=== PATIENT | female | born 1985 | race Two or more races ===

== ENCOUNTER 2020-08-25 09:27 | Day surgery (SDC) | payer OTHER, SELFPAY ==
[2020-08-21 12:41] VITALS: BMI 50.6
--- NOTE | 2020-08-24 09:04 | P.CONAN_ITS ---
Documented by User: Nannette Vidalesney 08/24/20 09:05 HPI - Anesthesia Eval Consult details Narrative: 35yo F for Diagnostic Sacroiliac Joint Innervation Injection (L) [facility] Past Medical History Medical History Back pain Obesity Raynaud disease Thoracic outlet syndrome Surgical History Surgical History Hx of gastric bypass Social History Social History Are you a primary emergency care attendant to a significant other at home: No Do you presently have visiting nurse or other home services: No Smoking Status: Never smoker Use of substances other than those prescribed or required for medical reasons: No Advance Directives: No Advance Directives Information Provided: No Advance Directives on File: No Recently lost weight without trying: No Meds Allergies Allergy/AdvReac Type Severity Reaction Status Date / Time No Known Allergies Allergy Verified 08/25/20 10:00 Home Medications Medication Instructions Recorded Confirmed Type tramadol 1 tab PO Q12H PRN 08/21/20 08/21/20 History Exam Exam Date and Time: August 24, 2020 0904 Height,Weight and Vital Signs: Height 5 ft 8 in Weight 151.046 kg Assessment and Plan Assessment Anesthesia Assessment: Chart Reviewed Documented by User: Andrew Melton MD 08/25/20 12:02 [facility] Past Medical History Medical History Back pain Obesity Raynaud disease Thoracic outlet syndrome Surgical History Surgical History Hx of gastric bypass Social History Social History Are you a primary emergency care attendant to a significant other at home: No Do you presently have visiting nurse or other home services: No Smoking Status: Never smoker Use of substances other than those prescribed or required for medical reasons: No Advance Directives: No Advance Directives Information Provided: No Advance Directives on File: No Recently lost weight without trying: No Meds Allergies Allergy/AdvReac Type Severity Reaction Status Date / Time No Known Allergies Allergy Verified 08/25/20 10:00 Home Medications Medication Instructions Recorded Confirmed Type tramadol 1 tab PO Q12H PRN 08/21/20 08/21/20 History Exam Airway Mallampati Class: II TM Dist: >3cm Neck ROM: Full Loose/Missing/Broken Teeth: No Heart: rrr Lungs: nl Other: ao Assessment and Plan Assessment Anesthesia Assessment: Anesthesia Plan Discussed and Chart Reviewed Final Anesthetic Review NPO: Yes ASA Class: III Final Preanesthetic Review: No Changes in Pt Med Stat, Meds/Allgs Chart Reviewed, Consent Obtained/Reviewed and Anes Risks/Benef Reviewed Patient Risk: Intermediate Procedure Risk: Low Anesthetic Plan Anesthetic Plan: MAC: Disposition: Standard PACU
--- NOTE | 2020-08-25 07:59 | MHC.SHP ---
Pre-Procedural Eval Section B Chief Complaint: Sacroliitis Details of Present Illness: as above Relevant Family History (Specify if Yes): No Relevant Social History: None Present Medications: None Medical History: No relevant PMH Allergies: Allergies Allergy/AdvReac Type Severity Reaction Status Date / Time No Known Allergies Allergy Unverified 08/21/20 12:27 Plan Patient has been examined and remains a candidate for the planned procedure
--- NOTE | 2020-08-25 08:00 | PM.OP ---
Brief Operative Note Date of Service: 08/25/20 Pre-op diagnosis: sacroiliitis Post-op diagnosis: same Procedure: the same Implants: none Surgeon: Rojas Saldivar MD Estimated blood loss (mL): 0 Disposition: PACU
--- NOTE | 2020-08-25 08:04 | MHC.SHP ---
Pre-Procedural Eval Section B Chief Complaint: Sacroliitis Details of Present Illness: sacroiliitis Relevant Family History (Specify if Yes): No Relevant Social History: None Medical History: No relevant PMH History of Previous Operations: No relevant previous surgery Allergies: Allergies Allergy/AdvReac Type Severity Reaction Status Date / Time No Known Allergies Allergy Unverified 08/21/20 12:27 Review of Systems Sugical H&P ROS: Negative: Constitution, Cardiovascular, Respiratory, Neurological, Psychiatric, Hem-Onc, Allergic/Immunologic, Gastrointestinal, Genitourinary, Musculoskeletal, Integumentary, Endocrine and Eyes/Ears/Nose/Throat Exam Surgical H&P Exam: Normal: HEENT, Normal: Heart, Normal: Lungs, Normal: Extremities, Normal: Abdomen, Normal: Skin and Normal: Neurological Plan Diagnosis/Plan: Unchanged Patient has been examined and remains a candidate for the planned procedure
--- NOTE | 2020-08-25 08:08 | P.OP_ITS ---
Operative Note Operative Note Date of Service: 08/25/20 Narrative: diagnostic sacroiliac joint innervation injection palisade type and MBB L4 does ramus L5 diagnostic injection . After obtaining informed consent and answering all the questions the patient came to the operating room. She was positioned prone on operating table, [employer] monitors were applied and patient was sedated. TIME-OUT WAS OBTAINED DELINEATING CORRECT SITE AND SIDE OF THE PROCEDURE NAME OF THE PATIENT NEED FOR ANTIBIOTIC RISK OF FIRE. Sterilely draped C-arm was brought over at the operating field and patient's lower back and left buttock were prepped with ChloraPrep and draped with sterile towels. The point of interests were delineated 1st as the leftL5 superior articular process at the point of its connection with corresponding transverse process as well as left S1 superior articular process at it's connection with sacral alae. The the skin in the projection of the points of interest were injected with small amount of local lidocaine 2%, after that 22 gauge 5 in nee dles were driven in tunnel vision fashion to the point of interests. When needles gently contacted the bone 1st trace amount of contrast was injected into each needle demonstrating no intravascular and no intrathecal uptake of the contrast. After that small amount of bupivacaine 0.5% no more than 1 cc was injected into each side. The attention was redirected after that to left sacral bone where several needles were placed from connection of the sacral alae with superior articular process of S1 all the way down to the lowest point of sacroiliac joint on the medial side of the joint in palisade fashion. The needles were injected with trace amount of contrast demonstrating no intra thecal and no intravascular uptake of the contrast. After that no more than 1 cc of bupivacaine 0.5% was injected into each needle. Upon completion of the injections needles were removed sterile dressings were applied. Patient tolerated procedure well she was awaken and taking outside of the operating room to recovery room. She recovered without complications she went home without immediate complications.
[2020-08-25 09:49] VITALS: BP 105/69; PULSE 75; RESP 16; TEMP 36.6; O2SAT 97
[2020-08-25] MEDS: Lactated Ringers 1,000 ML 100 ML IVCONT (10:05)
--- NOTE | 2020-08-25 11:52 | FL_ITS ---
EXAMINATION: XR FLUOROSCOPY WITH IMAGES CLINICAL INFORMATION: SI joint innervation COMPARISON: Lumbosacral radiographs 04/27/2020 TECHNIQUE: Fluoroscopy performed by Dr. Rojas Saldivar. Fluoroscopy time: 0.6 minutes DAP: 14.3 Gycm2 Images: 3 FINDINGS: There are spinal needle seen overlying the outer left L4 and L5 neural foramen with contrast in the nerve sheath. There are 3 spinal needles also noted adjacent to the lower left SI joint. IUD is present. FL/FL guidance in OR IMPRESSION: Fluoroscopy for pain management procedures.
--- NOTE | 2020-08-25 12:08 | MHC.SHP ---
Pre-Procedural Eval Section A The patient is an INPATIENT: No Section B Chief Complaint: Sacroliitis Details of Present Illness: As above Relevant Family History (Specify if Yes): No Relevant Social History: None Present Medications: None Medical History: No relevant PMH Allergies: Allergies Allergy/AdvReac Type Severity Reaction Status Date / Time No Known Allergies Allergy Verified 08/25/20 10:00 Review of Systems Sugical H&P ROS: Negative: Cardiovascular, Respiratory, Neurological, Psychiatric, Hem-Onc, Allergic/Immunologic, Gastrointestinal, Genitourinary, Musculoskeletal, Integumentary, Endocrine and Eyes/Ears/Nose/Throat and Yes, Specify: Constitution ( morbid obesity) Exam Surgical H&P Exam: Normal: HEENT, Normal: Heart, Normal: Lungs, Normal: Extremities, Normal: Abdomen, Normal: Skin and Normal: Neurological Plan Diagnosis/Plan: Unchanged Patient has been examined and remains a candidate for the planned procedure
[2020-08-25 12:56] VITALS: BP 127/71; PULSE 78; RESP 20; TEMP 36.6; O2SAT 100
[2020-08-25 13:11] VITALS: BP 133/82; PULSE 72; RESP 20; TEMP 36.6; O2SAT 100
[2020-08-25 13:30] VITALS: BP 120/75; PULSE 73; RESP 20; O2SAT 100
--- NOTE | 2020-08-25 13:54 | HO.POSTANES ---
Post Anesthesia Evaluation Post Anesthesia Evaluation Vital Signs: Vital Signs Temp Pulse Resp BP Pulse Ox 08/25/20 13:30 97.8 F 73 20 120/75 100 08/25/20 13:11 97.8 F 72 20 133/82 100 08/25/20 12:56 97.8 F 78 20 127/71 100 08/25/20 09:49 97.8 F 75 16 105/69 97 Anesthesia: Monitored Mental Status: Awake Pain Control: Satisfactory Nausea/Vomiting: None Hydration: Adequate Anesthesia-Related Issues: No Anes. Related Issues
== END 2020-08-25 14:00 | disposition home or self-care (01) ==
PROVIDERS: PCP Internal Medicine; Visit Provider Anesthesiology
PROC: 3E0U33Z Introduction of Anti-inflammatory into Joints, Percutaneous Approach (ICD-10-PCS; CPT 27096; principal; 2020-08-25 11:00)
DX: M46.1 Sacroiliitis, not elsewhere classified (principal); M54.5 Low back pain; E66.01 Morbid (severe) obesity due to excess calories; Z98.84 Bariatric surgery status
CPT/HCPCS: 64451; 64493; J2250; Q9967

== ENCOUNTER → 2020-08-30 14:26 | Outpatient (BNVA) | payer OTHER, SELFPAY | PROVIDERS: PCP Internal Medicine; Referring Provider Internal Medicine; Visit Provider Anesthesiology | DX: M46.1 Sacroiliitis, not elsewhere classified (principal); M16.12 Unilateral primary osteoarthritis, left hip; E66.01 Morbid (severe) obesity due to excess calories; Z68.43 Body mass index [BMI] 50.0-59.9, adult; Z98.84 Bariatric surgery status; Z98.890 Other specified postprocedural states | CPT/HCPCS: 99212 ==

== ENCOUNTER 2020-09-20 08:07 | Outpatient (REF) | payer OTHER, SELFPAY ==
[2020-09-26 20:18] LABS: HPV mRNA E6/E7 rflx Not Detected (Not Detected)
[2020-10-14 13:23] LABS: CT PCR NOT DETECTED (Not Detect.); NG PCR NOT DETECTED (Not Detect.)
== END 2020-09-20 08:08 | disposition home or self-care (01) ==
LOC: HO.LAB 08:07
PROVIDERS: Visit Provider Advanced Practice Midwife
DX: Z01.419 Encounter for gynecological examination (general) (routine) without abnormal findings (principal); N92.0 Excessive and frequent menstruation with regular cycle; E66.01 Morbid (severe) obesity due to excess calories; Z87.42 Personal history of other diseases of the female genital tract; Z20.2 Contact with and (suspected) exposure to infections with a predominantly sexual mode of transmission
CPT/HCPCS: 87491; 87591; 87624; 87625; 88141; 88142

== ENCOUNTER 2020-09-27 09:00 | Outpatient (REF) | payer OTHER, SELFPAY ==
--- NOTE | 2020-09-27 09:15 | US_ITS ---
EXAMINATION: US] PELVIS COMPLETE CLINICAL INFORMATION: Menorrhagia, Mirena 12/23/2016. COMPARISON: None TECHNIQUE: Transabdominal and transvaginal ultrasound of the pelvis is performed. FINDINGS: The uterus is anteverted measuring 9.4 cm in length, 4.6 cm in AP and 5.8 cm in transverse dimension. The endometrial thickness is 0.84 cm. A Mirena IUD appears to be in the lower uterine segment/cervical region. The uterus is homogeneous echotexture. No focal lesion seen. Right ovary measures 1.8 x 1.9 x 1.8 cm and volume 3.2 mL. Previously it measured 2.8 x 3.2 x 2.9 cm and volume 13.6 mL. Left ovary measures 3.7 x 1.9 x 2.8 cm and volume 10.3 mL. Previously it measured 2.4 x 1.6 x 1.9 cm and volume 10.3 mL. A small corpus luteal cyst measures 2.2 x 1.8 x 2.0 cm. There is no free fluid in the cul-de-sac. US/US pelvic complete IMPRESSION: 1. Unremarkable uterus. There is Mirena IUD in lower uterine segment/cervical endometrium. 2. Small corpus luteal cyst, left ovary, measuring 2.2 cm. Otherwise ovaries are unremarkable. 3. There is no free fluid in the cul-de-sac.
--- NOTE | 2020-09-27 09:15 | US_ITS ---
EXAMINATION: US] PELVIS COMPLETE CLINICAL INFORMATION: Menorrhagia, Mirena 12/23/2016. COMPARISON: None TECHNIQUE: Transabdominal and transvaginal ultrasound of the pelvis is performed. FINDINGS: The uterus is anteverted measuring 9.4 cm in length, 4.6 cm in AP and 5.8 cm in transverse dimension. The endometrial thickness is 0.84 cm. A Mirena IUD appears to be in the lower uterine segment/cervical region. The uterus is homogeneous echotexture. No focal lesion seen. Right ovary measures 1.8 x 1.9 x 1.8 cm and volume 3.2 mL. Previously it measured 2.8 x 3.2 x 2.9 cm and volume 13.6 mL. Left ovary measures 3.7 x 1.9 x 2.8 cm and volume 10.3 mL. Previously it measured 2.4 x 1.6 x 1.9 cm and volume 10.3 mL. A small corpus luteal cyst measures 2.2 x 1.8 x 2.0 cm. There is no free fluid in the cul-de-sac. US/US transvaginal IMPRESSION: 1. Unremarkable uterus. There is Mirena IUD in lower uterine segment/cervical endometrium. 2. Small corpus luteal cyst, left ovary, measuring 2.2 cm. Otherwise ovaries are unremarkable. 3. There is no free fluid in the cul-de-sac.
== END 2020-09-27 09:01 | disposition home or self-care (01) ==
LOC: HO.HMGCX 09:00
PROVIDERS: Visit Provider Advanced Practice Midwife
DX: N92.0 Excessive and frequent menstruation with regular cycle (principal)
CPT/HCPCS: 76830; 76856

== ENCOUNTER 2020-10-17 09:25 | Outpatient (REF) | payer OTHER, SELFPAY ==
[2020-10-17 12:39] LABS: Glucose Urine UA NEG (NEG); Leukocyte Esterase Urine NEG (NEG); Nitrite Urine NEG (NEG); Specific Gravity - Urine 1.025 (1.005-1.025); Urine Blood NEG (NEG); Urine Ketones NEG (NEG); Urine Protein NEG (NEG-TRACE)
[2020-10-17 12:44] LABS: Appearance Urine CLEAR; Color Urine YELLOW
== END 2020-10-17 09:26 | disposition home or self-care (01) ==
LOC: HO.LAB 09:25
PROVIDERS: PCP Internal Medicine; Visit Provider Advanced Practice Midwife
DX: Z30.432 Encounter for removal of intrauterine contraceptive device (principal); Z30.09 Encounter for other general counseling and advice on contraception; N92.0 Excessive and frequent menstruation with regular cycle
CPT/HCPCS: 58301; 81003; 81025

== ENCOUNTER 2020-11-01 13:53 | Outpatient (REF) | payer OTHER, SELFPAY | END 2020-11-01 13:54 | disposition home or self-care (01) | LOC: HO.LAB 13:53 | PROVIDERS: PCP Internal Medicine; Visit Provider Obstetrics & Gynecology | DX: R87.610 Atypical squamous cells of undetermined significance on cytologic smear of cervix (ASC-US) (principal) | CPT/HCPCS: 57454; 81025; 88305 ==

== ENCOUNTER → 2020-11-15 15:33 | Outpatient (BNVA) | payer OTHER, SELFPAY | PROVIDERS: PCP Internal Medicine; Visit Provider Obstetrics & Gynecology ==

== ENCOUNTER 2021-01-08 08:55 | Outpatient (REF) | payer OTHER, SELFPAY ==
[2021-01-08 09:47] LABS: MANUAL DIFF FLAG NO
[2021-01-08 09:56] LABS: Basophils Percent Auto 0.4 % (0-2); Eosinophils Absolute Auto 0.1 X10*3/uL (0.0-0.4); Eosinophils Percent Auto 1.9 % (0-4); Hemoglobin 10.5 g/dl (12.0-16.0); Imm Gran Abs Auto 0.01 X10*3/uL (0.00-0.03); Imm Gran Pct Auto 0.2 % (0.0-0.4); Lymphocytes Absolute Auto 1.7 X10*3/uL (1.2-4.9); Lymphocytes Percent Auto 31.5 % (20-40); Mean Corpuscular HGB Conc 31.8 g/dl (31.0-35.0); Mean Corpuscular Hemoglobin 21.6 pg (27.0-33.0); Mean Corpuscular Volume 67.8 fL (80-98); Mean Platelet Volume 10.5 fL (9.4-12.3); Monocytes Absolute Auto 0.3 X10*3/uL (0.1-1.2); Monocytes Percent Auto 6.3 % (2-11); Neutrophils Absolute Auto 3.2 X10*3/uL (2.0-8.3); Neutrophils Percent Auto 59.7 % (45-73); Platelet Count 281 X10*3/uL (160-400); Red Blood Count 4.87 X10*6/uL (4.20-5.50); Red Cell Distribution Width 18.8 % (11.0-16.0); White Blood Count 5.4 X10*3/uL (4.8-10.8)
[2021-01-08 10:14] LABS: Alanine Aminotransferase 19 U/L (0-31); Albumin Level 3.8 g/dL (3.5-5.0); Alkaline Phosphatase 82 U/L (39-117); Anion Gap 11 (12-20); Aspartate Amino Transferase 23 U/L (5-31); Bilirubin Total 0.5 mg/dL (0.0-1.0); Blood Urea Nitrogen 17 mg/dL (9-16); Calcium 8.6 mg/dL (8.4-10.2); Carbon Dioxide 27 mmol/L (22-29); Chloride 104 mmol/L (96-108); Cholesterol 170 mg/dL; Estimated Glomerular Filt Rate > 60; Glucose Random 109 mg/dL (60-115); Glucose Urine UA NEG (NEG); HDL Cholesterol 68 mg/dL; LDL Cholesterol Calculated 87 mg/dl; Leukocyte Esterase Urine NEG (NEG); Nitrite Urine NEG (NEG); Potassium 4.2 mmol/L (3.3-5.1); Sodium 138 mmol/L (135-145); Total Protein 6.7 g/dL (6.5-8.0); Triglycerides 77 mg/dL; Urine Blood NEG (NEG); Urine Ketones NEG (NEG); Urine Protein NEG (NEG-TRACE)
[2021-01-08 10:25] LABS: Appearance Urine CLEAR; Color Urine YELLOW
[2021-01-08 10:26] LABS: RBC Urine 0 /HPF (0); Squamous Epithelial Cell Urine 3+ /LPF; WBC Urine 0-2 /HPF (0-4)
[2021-01-08 10:31] LABS: HBS Num1 56.92 mIU/mL (0-7.99); HBc Num1 0.09 S/CO (0.00-0.79); Hepatitis B Core Antibody Nonreactive (Nonreactive); ~Hepatitis B Surface Antibody REACTIVE (Nonreactive)
[2021-01-08 10:33] LABS: HBsAGNum1 0.22 S/CO (0.00-0.99); Hepatitis B Surface Antigen Negative (Negative)
[2021-01-08 10:37] LABS: Free T4 (Free Thyroxine) 0.79 ng/dL (0.71-1.85); Thyroid Stimulating Hormone 0.97 uIU/mL (0.32-4.0); Vitamin D 25-OH Total 7.3 ng/mL (>30)
[2021-01-08 11:06] LABS: Folate 8.1 ng/mL (> or = 4.0); Vitamin B12 296 pg/mL (200-900)
[2021-01-09 17:51] LABS: Rubella IgG Antibody 2.12 Index
[2021-01-10 19:26] LABS: TS Negative Control Passed; TS Panel A 0; TS Panel B 0; TS Positive Control Passed; TSpotTB Negative (SeeBelow)
== END 2021-01-08 08:56 | disposition home or self-care (01) ==
LOC: HO.LAB 08:55
PROVIDERS: Absent Provider Internal Medicine; PCP Internal Medicine; Visit Provider Internal Medicine
DX: Z01.84 Encounter for antibody response examination (principal); Z13.9 Encounter for screening, unspecified; Z11.1 Encounter for screening for respiratory tuberculosis; E66.01 Morbid (severe) obesity due to excess calories; E78.00 Pure hypercholesterolemia, unspecified
CPT/HCPCS: 36415; 80053; 80061; 81001; 82306; 82607; 82746; 84439; 84443; 85025; 86481; 86704; 86706; 86735; 86762; 86765; 86787; 87340

== ENCOUNTER → 2021-05-15 13:43 | Outpatient (BNVA) | payer OTHER, SELFPAY | PROVIDERS: PCP Internal Medicine; Visit Provider Obstetrics & Gynecology ==

== ENCOUNTER 2022-05-02 09:23 | Outpatient (REF) | payer OTHER, SELFPAY ==
[2022-05-06 23:27] LABS: HPV mRNA E6/E7 rflx Not Detected (Not Detected)
== END 2022-05-02 09:24 | disposition home or self-care (01) ==
LOC: HO.LAB 09:23
PROVIDERS: Visit Provider Obstetrics & Gynecology
DX: Z01.419 Encounter for gynecological examination (general) (routine) without abnormal findings (principal); Z11.51 Encounter for screening for human papillomavirus (HPV); R87.610 Atypical squamous cells of undetermined significance on cytologic smear of cervix (ASC-US)
CPT/HCPCS: 87624; 88142

== ENCOUNTER 2022-05-22 11:19 | Outpatient (REF) | payer OTHER, SELFPAY ==
[2022-05-22 16:00] LABS: CT PCR NOT DETECTED (Not Detect.); NG PCR NOT DETECTED (Not Detect.)
== END 2022-05-22 11:20 | disposition home or self-care (01) ==
LOC: HO.LAB 11:19
PROVIDERS: PCP Internal Medicine; Visit Provider Obstetrics & Gynecology
DX: Z00.00 Encounter for general adult medical examination without abnormal findings (principal); N92.0 Excessive and frequent menstruation with regular cycle; Z11.3 Encounter for screening for infections with a predominantly sexual mode of transmission; Z11.8 Encounter for screening for other infectious and parasitic diseases; Z13.220 Encounter for screening for lipoid disorders; E66.01 Morbid (severe) obesity due to excess calories; M16.12 Unilateral primary osteoarthritis, left hip
CPT/HCPCS: 87480; 87491; 87510; 87591; 87660; 99212

== ENCOUNTER 2022-05-24 09:30 | Outpatient (REF) | payer OTHER, SELFPAY ==
[2022-05-25 09:44] LABS: BV Int Neg Control Negative (Negative); BV Int Pos Control Positive (Positive)
== END 2022-05-24 09:31 | disposition home or self-care (01) ==
LOC: HO.LAB 09:30
PROVIDERS: Visit Provider Advanced Practice Midwife
DX: Z20.2 Contact with and (suspected) exposure to infections with a predominantly sexual mode of transmission (principal)
CPT/HCPCS: 87480; 87510; 87660; 99211

== ENCOUNTER 2023-02-17 07:59 | Outpatient (REF) | payer OTHER, SELFPAY ==
[2023-02-19 15:18] LABS: TS Negative Control Passed; TS Panel A 1; TS Panel B 0; TS Positive Control Passed; TSpotTB Negative (Negative)
== END 2023-02-17 08:00 | disposition home or self-care (01) ==
LOC: HO.LAB 07:59
PROVIDERS: PCP Internal Medicine; Visit Provider Internal Medicine
DX: Z11.1 Encounter for screening for respiratory tuberculosis (principal)
CPT/HCPCS: 36415; 86481

== ENCOUNTER 2023-06-20 08:31 | Outpatient (AMB) | payer OTHER, SELFPAY ==
[2023-06-20 08:42] VITALS: BP 116/78; PULSE 81; O2SAT 99; BMI 48.8
--- NOTE | 2023-06-20 08:42 | A.OFFPC_ITS ---
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 Accompanied by: Self / Same As Patient Allergies No Known Allergies Allergy (Verified 06/20/23 09:28) Medication List - Last Reconciled 06/20/23 by Humza Chamberlain MD levonorgestrel (Liletta) intrauterine tramadol 50 mg PO Q8H PRN 30 days Tobacco use date assessed: 06/20/23 Dental Screening Dental Screen Date: 06/20/23 Did you have a dental visit in the last 12 months?: Yes Did you have a dental problem in the last 6 months where you did not have access to dental care?: No Was dental information given to patient?: Patient has dentist HPI ER follow up for work HPI Details Patient comes in today for her HDF follow up visit Relates that she first 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 knee 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) while working a couple of weeks ago on 06/04/23 She went to the ER at [facility] to her her knee examined then X-rays done came out negative and she was provided an Javier wrap for her knee and given instructions on how to manage her injury then States that tried going back to work a week later even though she was still exp eriencing left knee pain and discomfort and her knee gave out while she was going down some stairs States that she turned around and was able to fall sitting down but felt that she strained her knee even further in the process as she was then experiencing an increase in her knee pain Went to the ER at [facility] afterwards where repeat knee x-rays done showed only some knee effusion She was instructed to continue with knee wraps and to start applying some ice/cold compress to her knee for the next 24 hours and prescribed some Naproxen for the pain States that she is currently still experiencing increased discomfort and tightness over the back of her left knee, especially when she is walking and when she puts her weight onto her knee She is concerned about her leg giving out on her again because of how her knee feels She has not been back to work since her [facility] ER visit and was told by her employer that since they really have no light duty option, she should not return to work unless she is cleared medically No other acute complaints or symptoms are noted at present COUNTS INCLUDE 234 BEDS AT THE [facility] Medical History LGSIL (low grade squamous intraepithelial dysplasia) History of 2019 novel coronavirus disease (COVID-19) Right foot pain Osteoarthritis of left hip Sacroiliitis Morbid obesity Back pain Thoracic outlet syndrome Raynaud disease Surgical History Hx of gastric bypass Family History Mother Endometrial cancer Ovarian cancer Father Diabetes mellitus Social History Housing: House Are you a primary aged or disabled carer to a significant other at home: No Do you presently have visiting nurse or other home services: No Alcohol intake: current Alcohol intake frequency: holidays/special occasions only Patient Tobacco Use Status: Never used Tobacco e-Cigarette/Vaping Use: Never Used Second Hand Smoke Exposure: No service: No Current occupational status: employed Current occupational exposures/hazards: No Sexual orientation: Straight/Heterosexual Cognitive needs: No Hearing needs: No Vision needs: Yes Female Reproductive History Menstrual Age of Menarche: 10 Questionnaire PHQ-9 Over the last 2 weeks, how often have you been bothered by any of the following problems? 1. Little interest or pleasure in doing things: not at all 2. Feeling down, depressed, or hopeless: not at all 3. Trouble falling or staying asleep, or sleeping too much: not at all 4. Feeling tired or having little energy: not at all 5. Poor appetite or overeating: not at all 6. Feeling bad about yourself - or that you are a failure or have let yourself or your family down: not at all 7. Trouble concentrating on things, such as reading the newspaper or watching television: not at all 8. Moving or speaking so slowly that other people could have noticed. Or the opposite - being so fidgety or restless that you have been moving around a lot more than usual: not at all 9. Thoughts that you would be better off or of hurting yourself in some way: not at all Total score: 0 Depression Screening Interpretation: Negative 74576 - PHQ-9 Billing: Yes Source: Developed by Drs. Galdino Clay, Sanam Castaneda, Houston Masterson and colleagues, with an educational diya from [employer]. Thrive Questionnaire Date Thrive assessed: 06/20/23 I am a: Patient What is your living situation today?: I have a steady place to live Within the past 12 months, did the food you bought not last and you didn't have the money to get more?: Never true Within the past 12 months, did you worry whether your food would run out before you got money to buy more?: Never true Do you have trouble paying for medicines?: No Do you have trouble getting transportation to medical appointments?: No Do you have trouble paying your heating and electricity bill?: No Do you have trouble taking care of your child, family member or friend?: No Do you have trouble with day-to-day activities such as bathing, preparing meals, shopping, managing finances, etc.?: No Are you currently unemployed and looking for a job?: No Are you interested in more education?: No Please select the resources that you would like help with: None Currently or been in a relationship where the following occur: no concerns reported AUDIT C Alcohol Use Questionnaire (AUDIT-C) 1. How often do you have a drink containing alcohol?: Monthly or less 2. How many drinks containing alcohol do you have on a typical day when you are drinking?: 1 or 2 3. How often do you have six or more drinks on one occasion?: Never Total Score: 1 Score Reviewed/Action Taken: Yes BECKI-7 AMB Questionnaire BECKI-7 Date BECKI - 7 assessed: 06/20/23 Feeling nervous, anxious, or on edge: 0 = Not at all Not being able to stop or control worryin = Not at all Worrying too much about different things: 0 = Not at all Trouble relaxin = Not at all Being so restless that it is hard to sit still: 0 = Not at all Becoming easily annoyed or irritable: 0 = Not at all Feeling afraid as if something awful might happen: 0 = Not at all Total BECKI-7 score (0-4 normal; 5-9 mild; 10-14 moderate; 15-21 severe): 0 Source: Developed by Drs. Galdino Clay, Sanam Castaneda, Houston Masterson and colleagues, with an educational diya from [employer]. Review of Systems Const Denies fatigue, Denies fever(s) and Denies headache(s) ENT Denies dysphagia, Denies dizziness, Denies headache(s), Denies neck pain and Denies sore throat Card Denies chest pain and Denies dyspnea Resp Denies cough and Denies dyspnea GI Denies abdominal pain, Denies change in bowel habits, Denies dysphagia, Denies heartburn, Denies nausea and Denies vomiting Denies difficulty voiding, Denies nocturia and Denies dysuria Musc Reports arthralgias (left knee - see HPI) and Denies neck pain Skin/Breast Denies rash Neuro Denies dizziness and Denies headache(s) Endo Denies fatigue Physical exam (Primary Care) Vital Signs: Last Vital Signs Pulse 81 06/20/23 08:42 BP 116/78 06/20/23 08:42 Pulse Ox 99 06/20/23 08:42 Oxygen Delivery Method Room Air 06/20/23 08:42 BMI result Body Mass Index 48.8 Tobacco/Smoking Status: Tobacco use Status Tobacco use date assessed 06/20/23 06/20/23 08:49 Patient Tobacco Use Status Never used Tobacco 06/20/23 08:49 e-Cigarette/Vaping Use Never Used 06/20/23 08:49 PHQ-9: PHQ-9 Score PHQ-9: Total score 0 06/20/23 08:49 Depression Screening Interpretation: Negative Thrive Assessment: Date of Thrive Assessment Date Thrive assessed 06/20/23 06/20/23 08:49 Currently or been in a relationship where the following occur: no concerns reported Const General: no acute distress and alert Neck Neck: Yes no lymphadenopathy and Yes supple Resp Auscultation: clear to auscultation bilaterally, no rales and no wheezes Cardio Rate: regular rate Rhythm: regular rhythm Heart sounds: no murmurs GI Palpation (GI): Soft to palpation, nontender and No hepatosplenomegaly present Extrem General: Yes no clubbing, cyanosis or edema Left lower extremity: knee Details: tenderness (more of a discomfort and t ightness ) Location: of the popliteal fossa (and over the lateral aspect of the knee adjacent to the popliteal fossa) Assessment and Plan Assessment & Plan (1) Posterior left knee pain: Code(s): M25.562 - Pain in left knee Plan: Advised that she may have possibly strained her posterior cruciate ligament when she hurt her knee and aggravated the same ligament a week later but since her injury is not feeling any better more than a week later and her work requires her to be on her feet and walking a lot, she should stay off work for now until her injury is better evaluated and managed Should consider referral to physical therapy but I will go ahead and refer her to [facility] for further evaluation and recommendations SHe is inquiring about getting an MRI but advised that I will leave this up to the discretion of orthopedics to determine if an MRI is necessary at this point in time Advised to apply warm (instead of cold) compress over her knee PRN for symptomatic relief and to continue with Naproxen PRN for now Plan Follow up with PCP as scheduled in September 2023 Orders: Referrals Orthopedics Referral M25.562 - Pain in left knee Coding Level of Care Code Est Pt Level 3 (85672) Diagnoses Posterior left knee pain M25.562
== END 2023-06-20 09:31 | disposition home or self-care (01) ==
PROVIDERS: PCP Internal Medicine; Visit Provider Internal Medicine
DX: M25.562 Pain in left knee (principal)
CPT/HCPCS: 99213

== ENCOUNTER 2023-07-02 09:02 | Outpatient (AMB) | payer OTHER, SELFPAY ==
[2023-07-02 09:07] VITALS: BMI 48.7
--- NOTE | 2023-07-02 09:07 | MHC.OFFVIS ---
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 weighted? the patient. She states that she twisted her knee and had acute onset of pain. Most of the pain is along the medial aspect of her knee. Patient states that several days later she twisted her knee at the elderly lady's home and fell down several stairs. She has done physical therapy in the past which gave her minimal relief. She has also tried Tylenol and anti-inflammatory medicines which gave her only mild relief. She states that she does not feel comfortable returning to work because of her left knee instability. The patient also reports a chronic history of bilateral sacroiliitis. She states that she was seen here at [facility]. She did have a cortisone injection given into her low back approximately 3 years ago which gave her minimal relief. She would like to return to pain management to discuss further treatment options. Allergies No Known Allergies Allergy (Verified 06/20/23 09:28) Medication List - Last Reconciled 07/02/23 by Curt Guerrero MD levonorgestrel (Liletta) intrauterine tramadol 50 mg PO Q8H PRN 30 days PFSH Medical History LGSIL (low grade squamous intraepithelial dysplasia) History of 2019 novel coronavirus disease (COVID-19) Right foot pain Osteoarthritis of left hip Sacroiliitis Morbid obesity Back pain Thoracic outlet syndrome Raynaud disease Surgical History Hx of gastric bypass Family History Mother Endometrial cancer Ovarian cancer Father Diabetes mellitus Social History Housing: House Are you a primary primary care pediatrician to a significant other at home: No Do you presently have visiting nurse or other home services: No Alcohol intake: current Alcohol intake frequency: holidays/special occasions only Patient Tobacco Use Status: Never used Tobacco e-Cigarette/Vaping Use: Never Used Second Hand Smoke Exposure: No service: No Current occupational status: employed Current occupational exposures/hazards: No Sexual orientation: Straight/Heterosexual Cognitive needs: No Hearing needs: No Vision needs: Yes Female Reproductive History Menstrual Age of Menarche: 10 Physical Exam Vital Signs: BMI result Body Mass Index 48.7 Const Other: Well-nourished well-developed very friendly female awake alert and oriented x3 in no acute distress Extrem Other: Bilateral lower extremity examination shows good capillary refill, no skin lesions noted, normal sensation light touch Left knee examination shows a minimal effusion, minimal crepitus with range of motion, tenderness along her medial joint line, positive Marshall's test Results Reviewed Results Reviewed: X-rays of the patient's left knee show minimal diffuse joint space narrowing, no acute bony abnormalities Assessment & Plan Assessment & Plan (1) Left knee pain: Code(s): M25.562 - Pain in left knee Plan Ms. Herman presents with left knee pain and mechanical symptoms possibly due to a medial meniscus tear. Thus, I will send her for an MRI of her left knee for further evaluation. I will see her back once the MRI is completed to discuss findings and treatment options. I also put in a referral to pain management per her request. Feel free to contact me at any time should questions regarding her orthopedic management arise. I spent 22 minutes in reviewing the patient's records and imaging studies, seeing the patient and documenting in the medical record. Orders: Orders XR knee LT 3V Today M25.562 - Pain in left knee MR knee LT wo con Today M25.562 - Pain in left knee Referrals Pain Management Referral M46.1 - Sacroiliitis, not elsewhere classified Coding Level of Care Code New Pt Level 2 (15585) Diagnoses Left knee pain M25.562
== END 2023-07-02 09:31 | disposition home or self-care (01) ==
PROVIDERS: PCP Internal Medicine; Visit Provider Orthopaedic Surgery
DX: M25.562 Pain in left knee (principal)
CPT/HCPCS: 99202

== ENCOUNTER 2023-07-02 12:15 | Outpatient (REF) | payer OTHER, SELFPAY ==
--- NOTE | ~2023-07-02 | XR_ITS ---
EXAMINATION: XR KNEE, LEFT CLINICAL INFORMATION: Pain in left knee COMPARISON: None available. TECHNIQUE: Four views of the left knee. FINDINGS: No fracture or joint effusion. Alignment is anatomic. Joint spaces are maintained. No abnormal soft tissue calcification. XR/XR knee LT 3V IMPRESSION: Normal left knee.
== END 2023-07-02 12:16 | disposition home or self-care (01) ==
LOC: HO.HOSX 12:15
PROVIDERS: Visit Provider Orthopaedic Surgery
DX: M25.562 Pain in left knee (principal)
CPT/HCPCS: 73562; 99202

== ENCOUNTER 2023-08-13 08:42 | Outpatient (REF) | payer OTHER, SELFPAY | END 2023-08-13 08:43 | disposition home or self-care (01) | LOC: HO.MRI 08:42 | PROVIDERS: PCP Internal Medicine; Visit Provider Orthopaedic Surgery | DX: Z13.89 Encounter for screening for other disorder (principal) ==

== ENCOUNTER 2023-08-27 08:36 | Outpatient (AMB) | payer OTHER, SELFPAY ==
[2023-08-27 08:39] VITALS: BMI 48.7
--- NOTE | 2023-08-27 08:39 | A.OFFVIS_ITS ---
Intake Vital Signs 08/27/23 08:39 Height 5 ft 8 in Weight 320 lb BMI 48.7 Intake Visit Reasons: OV - Left knee MRI review Intake Note: Skip is a 37 year old female who presents today with left knee pain and giving way. 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 weighted? the patient. She states that she twisted her knee and had acute onset of pain. Most of the pain is along the medial aspect of her knee. Patient states that several days later she twisted her knee at the elderly lady's home and fell down several stairs. She has done physical therapy in the past which gave her minimal relief. She has also tried Tylenol and anti-inflammatory medicines which gave her only mild relief. She states that she does not feel comfortable returning to work because of her left knee instability. Allergies No Known Allergies Allergy (Verified 08/27/23 08:39) Medication List - Last Reconciled 08/27/23 by Curt Guerrero MD levonorgestrel (Liletta) intrauterine tramadol 50 mg PO Q8H PRN 30 days PFSH Medical History LGSIL (low grade squamous intraepithelial dysplasia) History of 2019 novel coronavirus disease (COVID-19) Right foot pain Osteoarthritis of left hip Sacroiliitis Morbid obesity Back pain Thoracic outlet syndrome Raynaud disease Surgical History Hx of gastric bypass Family History Mother Endometrial cancer Ovarian cancer Father Diabetes mellitus Housing: House Are you a primary acute care clinical nurse specialist to a significant other at home: No Do you presently have visiting nurse or other home services: No Alcohol intake: current Alcohol intake frequency: holidays/special occasions only Patient Tobacco Use Status: Never used Tobacco e-Cigarette/Vaping Use: Never Used Second Hand Smoke Exposure: No service: No Current occupational status: employed Current occupational exposures/hazards: No Sexual orientation: Straight/Heterosexual Cognitive needs: No Hearing needs: No Vision needs: Yes Female Reproductive History Menstrual Age of Menarche: 10 Physical Exam Vital Signs: BMI result Body Mass Index 48.7 Const Other: Well-nourished well-developed very friendly female awake alert and oriented x3 in no acute distress Lungs - clear to auscultation bilaterally with symmetric expansion Cardiovascular exam - regular rate and rhythm Abdominal exam - soft nontender nondistended Extrem Other: Bilateral lower extremity examination shows good capillary refill, no skin lesions noted, normal sensation light touch Left knee examination shows a minimal effusion, minimal crepitus range of motion, tenderness along her medial joint line, positive Marshall's test, no instability Results Reviewed Results Reviewed: Standing full weight-bearing x-rays of the patient's left knee show grade 1 minimal diffuse joint space narrowing, no acute bony abnormalities MRI of the patient's left knee shows mild diffuse degenerative changes as well as a tear of her medial meniscus and possible lateral meniscus tearing Assessment & Plan Assessment & Plan (1) Left knee pain: Code(s): M25.562 - Pain in left knee Plan: Ms. Herman presents with progressively worsening left knee pain and mechanical symptoms due to a medial meniscus tear and possible lateral meniscus tearing. I had a lengthy discussion with the patient regarding the treatment options. At this point she has failed continued non operative treatments. The risks and benefits of left knee arthroscopic surgery were discussed at length with the patient. The patient wishes to proceed with surgery. She does understand that she may not get 100% relief of her symptoms depending on the severity of her degenerative changes. The patient will contact my office to pick a surgery date. She will be given a prescription for pain medicine at the time of her surgery. Patient will follow-up as instructed. Feel free to call me at any time should questions regarding her orthopedic management arise. I spent 22 minutes in reviewing the patient's records and imaging studies, seeing the patient and documenting in the medical record. Coding Level of Care Code Est Pt Level 2 (64276) Diagnoses Left knee pain M25.562
== END 2023-08-27 08:48 | disposition home or self-care (01) ==
PROVIDERS: PCP Internal Medicine; Visit Provider Orthopaedic Surgery
DX: M25.562 Pain in left knee (principal)
CPT/HCPCS: 99212

== ENCOUNTER → 2023-08-27 08:36 | Outpatient (BNVA) | payer OTHER, SELFPAY | PROVIDERS: PCP Internal Medicine; Visit Provider Orthopaedic Surgery | DX: M25.562 Pain in left knee (principal); M16.11 Unilateral primary osteoarthritis, right hip | CPT/HCPCS: 99212 ==

== ENCOUNTER 2023-10-10 06:54 | Day surgery (SDC) | payer OTHER, SELFPAY ==
[2023-10-07 14:47] VITALS: BMI 48.7
--- NOTE | 2023-10-09 09:08 | HO.ANESPROP2 ---
Documented by User: Nannette Fuentes NP 10/09/23 09:10 HPI - Anesthesia Eval Consult details Narrative: 38yo F for Left Knee Arthroscopy, partil medial menisectomy, partial lateral menisectomy PMFSH Active Problems Active Problems: All Active Problems (Updated 07/02/23 @ 09:51 by Curt Guerrero MD) Bilateral sacroiliitis (Acute) Left knee pain (Acute) Posterior left knee pain (Acute) Left hip pain (Acute) Left low back pain (Acute) Left shoulder pain (Acute) Physical exam (Acute) Family planning advice (Acute) ASCUS of cervix with negative high risk HPV (Acute) Trochanteric bursitis of left hip (Acute) control counseling (Acute) Potential exposure to STD (Acute) Well woman exam with routine gynecological exam (Acute) History of abnormal cervical Pap smear (Acute) Menorrhagia (Acute) Right foot pain (Acute) Osteoarthritis of left hip (Acute) Sacroiliitis (Acute) Morbid obesity (Acute) Past Medical History Medical History LGSIL (low grade squamous intraepithelial dysplasia) History of 2019 novel coronavirus disease (COVID-19) Right foot pain Osteoarthritis of left hip Sacroiliitis Morbid obesity Back pain Thoracic outlet syndrome Raynaud disease Family History Family History Mother Endometrial cancer Ovarian cancer Father Diabetes mellitus Surgical History Surgical History Hx of gastric bypass Social History Social History Housing: House Are you a primary assistant child care teacher to a significant other at home: No Do you presently have visiting nurse or other home services: No Alcohol intake: current Alcohol intake frequency: holidays/special occasions only Patient Tobacco Use Status: Never used Tobacco e-Cigarette/Vaping Use: Never Used Second Hand Smoke Exposure: No Use of substances other than those prescribed or required for medical reasons: No Are you DNR?: No Advance Directives: No Advance Directives Information Provided: Yes service: No Current occupational status: employed Current occupational exposures/hazards: No Sexual orientation: Straight/Heterosexual Cognitive needs: No Hearing needs: No Vision needs: Yes Meds Allergies Allergy/AdvReac Type Severity Reaction Status Date / Time No Known Allergies Allergy Verified 08/27/23 08:39 Home Medications Medication Instructions Recorded Confirmed Last Taken Type levonorgestrel 20.4 mcg/24 hrs (8 intrauterine 05/02/22 08/27/23 Unknown History yrs) 52 mg intrauterine device (Liletta) Exam Height,Weight and Vital Signs: Height 5 ft 8 in Weight 145.15 kg Assessment and Plan Assessment Anesthesia Assessment: Chart Reviewed Documented by User: Rosarua Rdz MD 10/10/23 08:32 [facility] Past Medical History Medical History LGSIL (low grade squamous intraepithelial dysplasia) History of 2019 novel coronavirus disease (COVID-19) Right foot pain Osteoarthritis of left hip Sacroiliitis Morbid obesity Back pain Thoracic outlet syndrome Raynaud disease Family History Family History Mother Endometrial cancer Ovarian cancer Father Diabetes mellitus Family history of problems with anesthesia: No Surgical History Surgical History Hx of gastric bypass History of Problems with Anesthesia: No Social History Social History Housing: House Are you a primary assistant child care teacher to a significant other at home: No Do you presently have visiting nurse or other home services: No Alcohol intake: current Alcohol intake frequency: holidays/special occasions only Patient Tobacco Use Status: Never used Tobacco e-Cigarette/Vaping Use: Never Used Second Hand Smoke Exposure: No Use of substances other than those prescribed or required for medical reasons: No Are you DNR?: No Advance Directives: No Advance Directives Information Provided: Yes service: No Current occupational status: employed Current occupational exposures/hazards: No Sexual orientation: Straight/Heterosexual Cognitive needs: No Hearing needs: No Vision needs: Yes Meds Allergies Allergy/AdvReac Type Severity Reaction Status Date / Time No Known Allergies Allergy Verified 08/27/23 08:39 Home Medications Medication Instructions Recorded Confirmed Last Taken Type levonorgestrel 20.4 mcg/24 hrs (8 intrauterine 05/02/22 08/27/23 Unknown History yrs) 52 mg intrauterine device (Liletta) Exam Airway Mallampati Class: II TM Dist: >3cm Neck ROM: Full Heart: rrr Lungs: cta Assessment and Plan Assessment Anesthesia Assessment: Anesthesia Plan Discussed Final Anesthetic Review Family History of Problems with Anesthesia: No History of Problems with Anesthesia: No NPO: Yes ASA Class: II Final Preanesthetic Review: No Changes in Pt Med Stat, Meds/Allgs Chart Reviewed, Consent Obtained/Reviewed and Anes Risks/Benef Reviewed Patient Risk: Low Procedure Risk: Low Anesthetic Plan Anesthetic Plan: GA Disposition: Standard PACU
[2023-10-10] VITALS (10 sets, daily range): BP systolic 112–141; BP diastolic 47–80; PULSE 62–88; RESP 13–22; TEMP 36–36.7; O2SAT 98–100; BMI 49.3
--- NOTE | 2023-10-10 09:51 | PM.OP ---
Brief Operative Note Date of Service: 10/10/23 Pre-op diagnosis: Left knee meniscus tear Post-op diagnosis: other (Left knee plica syndrome and left knee early degenerative joint disease (no meniscus tear found)) Procedure: Left knee diagnostic arthroscopy with arthroscopic chondroplasty of the medial femoral condyle as well as left knee arthroscopic plica excision Implants: none Surgeon: Curt Guerrero MD Was an Clam Bed Worker used for this Procedure?: No Estimated blood loss (mL): 10 Pathology: none sent Condition: stable Disposition: PACU
--- NOTE | 2023-10-10 09:53 | W.PM.OPN ---
Operative Note Operative Note Date of Service: 10/10/23 Narrative: After the patient was identified as Skip Herman and her left knee was initialed by myself they were brought to the operating room where general anesthesia was induced by the anesthesiologist in routine fashion. The patient was given IV Ancef preoperatively for infection prophylaxis. The patient's left lower extremity was prepped and draped in sterile fashion. A formal time-out was completed. Marcaine was injected into the planned incision sites as well as the patient's left knee joint. A #11 scalpel blade was used to make an anterolateral portal 1 cm proximal to the joint line and 1 cm lateral to the patellar tendon. Blunt trocar technique was used to enter the suprapatellar pouch with the knee in extension. Diagnostic arthroscopy showed multiple bands of thickened plica which would be excised at the end of the procedure. There were no loose bodies or abnormalities found in either the medial or lateral gutters. The articular surface of the patella and the trochlear groove articular surface showed no significant degenerative changes. The patient's knee was flexed to 45 degrees and a valgus force was placed upon it. The medial compartment was entered. An anteromedial portal was made 1 cm proximal to the joint line and 1 cm medial to the patellar tendon. Probing of the medial meniscus showed no evidence of medial meniscus tearing. There were diffuse grades 1 and 2 degenerative changes of the medial femoral condyle. There were no significant degenerative changes of the medial tibial plateau articular surface. The articular surface of the medial femoral condyle was then made smooth using the arthroscopic shaver. The patient's knee was placed into a neutral position. There was no injury to the anterior cruciate ligament. The patient's knee was then placed in the figure of 4 position and the lateral compartment was entered. There was no evidence of lateral meniscus tearing. There were no degenerative changes of the lateral femoral condyle and lateral tibial plateau. The patient's knee was once again brought into extension and the suprapatellar pouch was entered. The arthroscopic shaver and the ArthroCare Wand were used to excise the thickened bands of plica. The knee joint was irrigated and then drained. All arthroscopic instruments were removed. The 2 portals were closed with 3-0 nylon interrupted suture. The knee joint was injected with Marcaine. Dry sterile dressing and Javier bandages were placed over the patient's knee. The patient was awoken and extubated in the operating room. The patient was transferred to the recovery room in stable condition.
== END 2023-10-10 11:15 | disposition home or self-care (01) ==
PROVIDERS: PCP Internal Medicine; Visit Provider Orthopaedic Surgery
PROC: (CPT 29870; principal; 2023-10-10 08:40)
DX: M67.52 Plica syndrome, left knee (principal); M25.562 Pain in left knee; Z87.828 Personal history of other (healed) physical injury and trauma; M17.12 Unilateral primary osteoarthritis, left knee; M25.362 Other instability, left knee; E66.01 Morbid (severe) obesity due to excess calories; Z68.42 Body mass index [BMI] 45.0-49.9, adult; M46.1 Sacroiliitis, not elsewhere classified; M16.12 Unilateral primary osteoarthritis, left hip; I73.00 Raynaud's syndrome without gangrene; G54.0 Brachial plexus disorders; Z79.899 Other long term (current) drug therapy; Z86.16 Personal history of COVID-19
CPT/HCPCS: 29876; 81025; J0131; J0171; J0690; J0696; J1100; J1885; J2371; J2405; J2704; J2795; J3010

== ENCOUNTER → 2023-10-10 06:54 | Outpatient (BNV) | payer OTHER, SELFPAY | PROVIDERS: PCP Internal Medicine; Visit Provider Orthopaedic Surgery | DX: M67.52 Plica syndrome, left knee (principal); M17.12 Unilateral primary osteoarthritis, left knee | CPT/HCPCS: 29877 ==

== ENCOUNTER 2023-10-23 09:33 | Outpatient (AMB) | payer OTHER, SELFPAY ==
--- NOTE | 2023-10-23 09:38 | MHC.OFFVIS ---
Intake Intake Visit Reasons: PO-Lt Knee 10/10/23 Intake Note: Skip a 38 year old female presents today for a post operative left knee , DOS 10/10/23 . Patient reports her pain is tolerable however feels stiffness. She continues to do at home exercises as instructed. Allergies No Known Allergies Allergy (Verified 10/23/23 09:41) HPI PO-Lt Knee 10/10/23 HPI Details 38-year-old female who returns to the office today for post-op left knee , 10/10/[address] Guerrero. She states her pain has been tolerable but she continues to have constant stiffness in her knee. She is working on home exercises as instructed. She is doing well otherwise and has no other concerns today. [facility] Medical History LGSIL (low grade squamous intraepithelial dysplasia) History of 2019 novel coronavirus disease (COVID-19) Right foot pain Osteoarthritis of left hip Sacroiliitis Morbid obesity Back pain Thoracic outlet syndrome Raynaud disease Surgical History Hx of gastric bypass Family History Mother Endometrial cancer Ovarian cancer Father Diabetes mellitus Social History Housing: House Are you a primary child care centre director to a significant other at home: No Do you presently have visiting nurse or other home services: No Alcohol intake: current Alcohol intake frequency: holidays/special occasions only Patient Tobacco Use Status: Never used Tobacco e-Cigarette/Vaping Use: Never Used Second Hand Smoke Exposure: No service: No Current occupational status: employed Current occupational exposures/hazards: No Sexual orientation: Straight/Heterosexual Cognitive needs: No Hearing needs: No Vision needs: Yes Female Reproductive History Menstrual Age of Menarche: 10 Review of Systems Const All systems reviewed & are unremarkable except as noted in HPI and below Physical Exam Extrem Other: Left knee: Incision clean, dry and intact. No erythema no drian rom 0-95 degrees Calf supple, nontender. NVI. Results Reviewed Results Reviewed: Brief Operative Note Date of Service: 10/10/23 Pre-op diagnosis: Left knee meniscus tear Post-op diagnosis: other (Left knee plica syndrome and left knee early degenerative joint disease (no meniscus tear found)) Procedure: Left knee diagnostic arthroscopy with arthroscopic chondroplasty of the medial femoral condyle as well as left knee arthroscopic plica excision Implants: none Surgeon: Curt Guerrero MD Assessment & Plan Assessment & Plan (1) Osteoarthritis of left knee: Code(s): M17.12 - Unilateral primary osteoarthritis, left knee Qualifiers: Osteoarthritis type: primary Qualified Code(s): M17.12 - Unilateral primary osteoarthritis, left knee Plan Sutures removed today, steri strips applied. She will begin a course of physical therapy to work on ROM, gait training and quad strengthening. I encouraged her to avoid high impact activities such as deep bending, squatting, twisting, or pivoting for the next 4-6 weeks. she will remain out of work for 4 weeks at which point she will see us back with Dr. Guerrero, sooner if needed. Orders: Orders PT Evaluation and Treatment Today M17.12 - Unilateral primary osteoarthritis, left knee Patient Instructions: Scribed for Brian Borrego PA-C, by Tommy Deng medical staff services coordinator, on 10/23/2023 at 9:30 AM EST. I, Brian Borrego PA-C, have personally reviewed and agree with the information entered by the scribe. Coding Level of Care Code Global (92014) Diagnoses Primary osteoarthritis of left knee M17.12 Osteoarthritis type: primary
== END 2023-10-23 10:01 | disposition home or self-care (01) ==
PROVIDERS: PCP Internal Medicine; Visit Provider Physician Assistant
DX: M17.12 Unilateral primary osteoarthritis, left knee (principal)
CPT/HCPCS: 99024

== ENCOUNTER → 2023-10-23 09:33 | Outpatient (BNVA) | payer OTHER, SELFPAY | PROVIDERS: PCP Internal Medicine; Visit Provider Physician Assistant | DX: Z47.89 Encounter for other orthopedic aftercare (principal) | CPT/HCPCS: 99212 ==

== ENCOUNTER 2023-11-17 07:00 | Outpatient (RCR) | payer OTHER, SELFPAY ==
--- NOTE | 2023-11-03 11:45 | MHC.PT.EP ---
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 SHE PRESENTS W/O ASST DEVICE , W (+) COMPENSATION AND GENU VALGUS TENDENCIES. THE Pt HAS LIMITED ROM Lt KNEE, DECR STRENGTH Lt LE, (+) Lt PATELLAR SORENESS AND LAT TIGHTNESS, AND PAIN IN Lt KNEE IMPACTING ALL FUNCTIONAL TASKS. SHE IS MOTIVATED TO RTW AND ADDRESS HER Lt POST-OP CONCERNS/ FINDINGS. SHE WOULD BENEFIT FROM PT 2 x WK x 6 WKS TO ADDRESS THE ABOVE AND GUIDE Pt IN MEETING HER ULTIMATE GOAL OF RTW. Frequency and Duration: The patient will be seen 2 x WK x 5 WKS Short Term Goals: *DECR Lt KNEE PAIN TO 2-3/10 *IMPROVE ROM Lt KNEE *Pt DEMON EFFICIENT GAIT ON LEVEL AND STAIRS *SIT <-> STAND TRANSFERS W RESOLVED UEs COMPENSATION *Pt DEMON APPROP QUAD MM ACTIV Skilled Nursing Goals: * INDEP HEP AND SELF-SX MGMT TECHN *Lt LE STRENGTH INCR BY AT LEAST 1 GRADE *Pt RESUME REG ADLs AND RTW-> IMPROVED LEFI ( AT EVAL 47/80) Treatment Plan: Modalities to reduce pain, spasms and effusion. Manual therapy to restore motion and function. Therapeutic exercise to improve strength and flexibility. Neuromuscular re-education for posture and balance. Therapeutic activities to return to functional activities of daily living. Electronically signed by: HEATH CHU,PT Please sign and return to therapist. Thank you for your referral.
--- NOTE | 2023-12-23 15:01 | MHC.PT.DC ---
[facility] [place] Office [place] Office [place] Office [address] Gilberto Gomez [address] [facility] [phone] F: [phone] F: [phone] F: [phone] F: [phone] Physical Therapy Discharge Report Diagnosis: POST LEFT KNEE CHONDROPLASTY SURGERY-> Left knee diagnostic arthroscopy with arthroscopic chondroplasty of the medial femoral condyle as well as left knee arthroscopic plica excision, NO MENISCAL TEAR FOUND-> PT FOR ROM AND QUAD STRENGTH Date of Surgery: 10/10/23 Date of Evaluation: 11/03/23 Date of Discharge: 12/23/23 Treatments to Date: 3 Cancellations to Date: 4 No Shows to Date: 2 Discharge Status: Patient Elected to Stop Visit Non-compliance Discharge Summary: THE Pt ATTENDED PT x 3 APPTS, ADDRESSING PAIN MGMT AND ACUTE POST-OP SXS- SHE WAS LIMITED IN HER POST-OP COURSE DUE TO OPPOS LEFT KNEE PAIN AND LIMITATIONS- SHE IS D/C'D FROM PT AT THIS TIME DUE TO POOR ATTENDANCE FOR SCHED PT APPTS. Electronically signed by: HEATH CHU, PT Please sign and return to therapist. Thank you for your referral.
== END 2023-12-23 15:02 | disposition home or self-care (01) ==
LOC: HO.PT 07:00
PROVIDERS: PCP Internal Medicine; Visit Provider Physician Assistant
DX: M17.12 Unilateral primary osteoarthritis, left knee (principal)
CPT/HCPCS: 97110; 97162; 97530

== ENCOUNTER 2023-12-04 10:06 | Outpatient (AMB) | payer OTHER, SELFPAY ==
--- NOTE | 2023-12-04 10:09 | A.OFFVIS_ITS ---
Intake Intake Visit Reasons: PO-Lt Knee 10/10/23 DR-book with dr hernandez Intake Note: Skip is a 38 year old female who presents for her post operative appointment s/p Left knee on 10/10/2023 Patient reports she has moderate improvement . She has done a little physical therapy which she feels didn't really help. She denies any fevers or chills. She denies any locking or giving way. Allergies No Known Allergies Allergy (Verified 12/04/23 10:19) Medication List - Last Reconciled 12/05/23 by Curt Hernandez MD diclofenac sodium 1% (Arthritis Pain (diclofenac)) 2 grams topical QID 30 days levonorgestrel (Liletta) intrauterine oxycodone-acetaminophen 5-325 mg (Percocet) 1 tab PO Q4H tramadol 50 mg PO Q8H PRN 30 days PFSH Medical History LGSIL (low grade squamous intraepithelial dysplasia) History of 2019 novel coronavirus disease (COVID-19) Right foot pain Osteoarthritis of left hip Sacroiliitis Morbid obesity Back pain Thoracic outlet syndrome Raynaud disease Surgical History History of left knee surgery (10/10/23) Hx of gastric bypass Family History Mother Endometrial cancer Ovarian cancer Father Diabetes mellitus Social History Housing: House Are you a primary home health care coordinator to a significant other at home: No Do you presently have visiting nurse or other home services: No Alcohol intake: current Alcohol intake frequency: holidays/special occasions only Patient Tobacco Use Status: Never used Tobacco e-Cigarette/Vaping Use: Never Used Second Hand Smoke Exposure: No service: No Current occupational status: employed Current occupational exposures/hazards: No Sexual orientation: Straight/Heterosexual Cognitive needs: No Hearing needs: No Vision needs: Yes Female Reproductive History Menstrual Age of Menarche: 10 Physical Exam Extrem Other: Left knee examination shows that the surgical incisions are well healed, no erythema, minimal discomfort with range of motion, no instability Assessment & Plan Assessment & Plan (1) Left knee pain: Code(s): M25.562 - Pain in left knee Plan Ms. Herman continues to do well after undergoing left knee arthroscopic surgery on 10/10/2023. She will continue with her activity modifications. I have cleared her to return to work. She will follow up with me on an as-needed basis should her symptoms not plateau at an acceptable level over the next few months. Feel free to call me at any time should questions regarding her orthopedic management arise. Coding Level of Care Code Global (44850) Diagnoses Left knee pain M25.562
== END 2023-12-04 10:44 | disposition home or self-care (01) ==
PROVIDERS: PCP Internal Medicine; Visit Provider Orthopaedic Surgery
DX: M25.562 Pain in left knee (principal)
CPT/HCPCS: 99024

== ENCOUNTER → 2023-12-04 10:06 | Outpatient (BNVA) | payer OTHER, SELFPAY | PROVIDERS: PCP Internal Medicine; Visit Provider Orthopaedic Surgery | DX: M25.562 Pain in left knee (principal); Z98.890 Other specified postprocedural states | CPT/HCPCS: 99212 ==

== ENCOUNTER 2023-12-16 09:46 | Outpatient (AMB) | payer OTHER, SELFPAY ==
--- NOTE | 2023-12-16 09:48 | A.OFFVIS_ITS ---
Intake Vital Signs 12/16/23 10:05 Height 5 ft 8 in Intake Visit Reasons: [place]-right knee pain Intake Note: Skip is a 38 year old female who presents with Right knee pain. The patient did undergo left knee arthroscopic surgery on 10/10/2023. Prior to that surgery she did injure her left knee while at work. The patient states that she did not injure her right knee at work. She reports mild discomfort in her left knee. She describes her right knee pain as sharp in nature. Most of the pain is along the medial aspect of her knee. She did injure her right knee several months ago when she was baby-sitting and she tripped over a baby's toy. Since that time her symptoms have gotten worse in spite of continued non operative treatments. She states that her right knee will give out several times per day. She has had injections in the past which gave her minimal relief. She has also tried tramadol, ice and Voltaren gel. Allergies No Known Allergies Allergy (Verified 12/16/23 10:08) Medication List - Last Reconciled 12/16/23 by Curt Guerrero MD diclofenac sodium 1% (Arthritis Pain (diclofenac)) 2 grams topical QID 30 days levonorgestrel (Liletta) intrauterine oxycodone-acetaminophen 5-325 mg (Percocet) 1 tab PO Q4H tramadol 50 mg PO Q8H PRN 30 days PFSH Medical History LGSIL (low grade squamous intraepithelial dysplasia) History of 2019 novel coronavirus disease (COVID-19) Right foot pain Osteoarthritis of left hip Sacroiliitis Morbid obesity Back pain Thoracic outlet syndrome Raynaud disease Surgical History History of left knee surgery (10/10/23) Hx of gastric bypass Family History Mother Endometrial cancer Ovarian cancer Father Diabetes mellitus Social History Housing: House Are you a primary career development coordinator/teacher to a significant other at home: No Do you presently have visiting nurse or other home services: No Alcohol intake: current Alcohol intake frequency: holidays/special occasions only Patient Tobacco Use Status: Never used Tobacco e-Cigarette/Vaping Use: Never Used Second Hand Smoke Exposure: No service: No Current occupational status: employed Current occupational exposures/hazards: No Sexual orientation: Straight/Heterosexual Cognitive needs: No Hearing needs: No Vision needs: Yes Female Reproductive History Menstrual Age of Menarche: 10 Physical Exam Const Other: Well-nourished well-developed very friendly female awake alert and oriented x3 in no acute distress Extrem Other: Bilateral lower extremity examination shows good capillary refill, no skin lesions noted, normal sensation light touch Right knee examination shows a minimal effusion, minimal crepitus with range of motion, tenderness along her medial joint line, positive Marshall's test, no instability Results Reviewed Results Reviewed: Standing full weight-bearing x-rays of the patient's right knee show minimal joint space narrowing, no acute bony abnormalities Assessment & Plan Assessment & Plan (1) Tear of medial meniscus of right knee: Code(s): S83.241A - Other tear of medial meniscus, current injury, right knee, initial encounter Plan Ms. Herman presents with progressively worsening right knee pain and mechanical symptoms most likely due to a tear of her medial meniscus. Thus, I will send the patient for an MRI of her right knee for further evaluation. I will see her back once the MRI is completed to discuss the findings treatment options. She will contact me prior to that appointment should her symptoms worsen in any way. Feel free to call me at any time should questions regarding her orthopedic management arise. I spent 22 minutes in reviewing the patient's records and imaging studies, seeing the patient and documenting in the medical record. Orders: Orders 2 XR knee RT 3V Today M25.561 - Pain in right knee MR knee RT wo con Today S83.241A - Other tear of medial meniscus, current injury, right knee, initial encounter Coding Level of Care Code Est Pt Level 2 (11321) Diagnoses Tear of medial meniscus of right knee S83.241A
== END 2023-12-16 10:16 | disposition home or self-care (01) ==
PROVIDERS: PCP Internal Medicine; Visit Provider Orthopaedic Surgery
DX: S83.241A Other tear of medial meniscus, current injury, right knee, initial encounter (principal); W01.0XXA Fall on same level from slipping, tripping and stumbling without subsequent striking against object, initial encounter
CPT/HCPCS: 99213

== ENCOUNTER 2023-12-16 14:45 | Outpatient (REF) | payer OTHER, SELFPAY ==
--- NOTE | ~2023-12-16 | XR_ITS ---
EXAMINATION: XR KNEE, RIGHT CLINICAL INFORMATION: Pain in right knee. COMPARISON: None available. TECHNIQUE: 3 views of the right knee. FINDINGS: Moderate joint effusion. Mild narrowing of the medial compartment. Tiny marginal osteophytes. XR/XR knee RT 3V IMPRESSION: Moderate suprapatellar effusion. Mild degenerative changes.
== END 2023-12-16 14:46 | disposition home or self-care (01) ==
LOC: HO.HOSX 14:45
PROVIDERS: Visit Provider Orthopaedic Surgery
DX: M25.561 Pain in right knee (principal)
CPT/HCPCS: 73562; 99212

== ENCOUNTER 2023-12-26 09:09 | Outpatient (AMB) | payer OTHER, SELFPAY ==
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
[2023-12-26 09:17] VITALS: BP 127/79; PULSE 69; O2SAT 99; BMI 48.1
== END 2023-12-26 09:45 | disposition home or self-care (01) ==
PROVIDERS: PCP Internal Medicine; Visit Provider Nurse Practitioner Family
DX: G89.4 Chronic pain syndrome (principal); M25.561 Pain in right knee; M46.1 Sacroiliitis, not elsewhere classified; Z79.891 Long term (current) use of opiate analgesic; M53.3 Sacrococcygeal disorders, not elsewhere classified; G89.29 Other chronic pain; Z98.84 Bariatric surgery status; E66.01 Morbid (severe) obesity due to excess calories; Z68.42 Body mass index [BMI] 45.0-49.9, adult
CPT/HCPCS: 99204

== ENCOUNTER → 2023-12-26 09:09 | Outpatient (BNVA) | payer OTHER, SELFPAY | PROVIDERS: PCP Internal Medicine; Visit Provider Nurse Practitioner Family | DX: M46.1 Sacroiliitis, not elsewhere classified (principal); M53.3 Sacrococcygeal disorders, not elsewhere classified; M25.561 Pain in right knee; M25.562 Pain in left knee; G89.4 Chronic pain syndrome; E66.01 Morbid (severe) obesity due to excess calories; Z68.42 Body mass index [BMI] 45.0-49.9, adult; Z98.84 Bariatric surgery status; Z79.891 Long term (current) use of opiate analgesic | CPT/HCPCS: 99202 ==

== ENCOUNTER 2024-01-01 12:57 | Outpatient (AMB) | payer OTHER, SELFPAY ==
[2024-01-01 13:04] VITALS: BMI 48.0
--- NOTE | 2024-01-01 13:04 | MHC.OFFVIS ---
Intake Vital Signs 01/01/24 13:04 Height 5 ft 8 in Weight 316 lb BMI 48.0 Intake Visit Reasons: OV- RT knee mri review Intake Note: Skip is a 38 year old female who presents with Right knee pain. The patient did undergo left knee arthroscopic surgery on 10/10/2023. Prior to that surgery she did injure her left knee while at work. The patient states that she did not injure her right knee at work. She reports mild discomfort in her left knee. She describes her right knee pain as sharp in nature. Most of the pain is along the medial aspect of her knee. She did injure her right knee several months ago when she was baby-sitting and she tripped over a baby's toy. Since that time her symptoms have gotten worse in spite of continued non operative treatments. She states that her right knee will give out several times per day. She has had injections in the past which gave her minimal relief. She has also tried tramadol, ice and Voltaren gel. Allergies No Known Allergies Allergy (Verified 01/01/24 13:05) Medication List - Last Reconciled 01/02/24 by Curt Guerrero MD diclofenac sodium 1% (Arthritis Pain (diclofenac)) 2 grams topical QID 30 days gabapentin 300 mg PO BID levonorgestrel (Liletta) intrauterine naloxone 4 mg/actuation (Narcan) 4 mg intranasal Q2M PRN tramadol 50 mg PO Q8H PRN 30 days PFSH Medical History LGSIL (low grade squamous intraepithelial dysplasia) History of 2019 novel coronavirus disease (COVID-19) Right foot pain Osteoarthritis of left hip Sacroiliitis Morbid obesity Back pain Thoracic outlet syndrome Raynaud disease Surgical History History of left knee surgery (10/10/23) Hx of gastric bypass Family History Mother Endometrial cancer Ovarian cancer Father Diabetes mellitus Social History Housing: House Are you a primary hemodialysis patient care specialist to a significant other at home: No Do you presently have visiting nurse or other home services: No Alcohol intake: current Alcohol intake frequency: holidays/special occasions only Patient Tobacco Use Status: Never used Tobacco e-Cigarette/Vaping Use: Never Used Second Hand Smoke Exposure: No service: No Current occupational status: employed Current occupational exposures/hazards: No Sexual orientation: Straight/Heterosexual Cognitive needs: No Hearing needs: No Vision needs: Yes Female Reproductive History Menstrual Age of Menarche: 10 Physical Exam Vital Signs: BMI result Body Mass Index 48.0 Const Other: Well-nourished well-developed very friendly female awake alert and oriented x3 in no acute distress Extrem Other: Bilateral lower extremity examination shows good capillary refill, no skin lesions noted, normal sensation light touch Right knee examination shows a minimal effusion, mild crepitus with range of motion, tenderness along her medial joint line, positive Marshall's test, no instability Results Reviewed Results Reviewed: MRI of the patient's right knee shows mild diffuse degenerative changes as well as a tear of her medial meniscus, no acute bony abnormalities Assessment & Plan Assessment & Plan (1) Tear of medial meniscus of right knee: Code(s): S83.241A - Other tear of medial meniscus, current injury, right knee, initial encounter Plan Ms. Herman presents with progressively worsening right knee pain and mechanical symptoms due to early degenerative joint disease as well as a tear of her medial meniscus. I had a lengthy discussion with the patient regarding the treatment options. At this point she has failed continued non operative treatments. The risks and benefits of right knee arthroscopic surgery were discussed at length with the patient. The patient wishes to proceed with surgery. She does understand that she may not get 100% relief of her symptoms depending on the severity of her degenerative changes. The patient will be scheduled for next available date. She will follow-up as instructed. Feel free to call me at any time should questions regarding her orthopedic management arise. I spent 22 minutes in reviewing the patient's records and imaging studies, seeing the patient and documenting in the medical record. Coding Level of Care Code Est Pt Level 2 (41850) Diagnoses Tear of medial meniscus of right knee S83.241A
== END 2024-01-01 13:21 | disposition home or self-care (01) ==
PROVIDERS: PCP Internal Medicine; Visit Provider Orthopaedic Surgery
DX: S83.241A Other tear of medial meniscus, current injury, right knee, initial encounter (principal)
CPT/HCPCS: 99214

== ENCOUNTER → 2024-01-01 12:57 | Outpatient (BNVA) | payer OTHER, SELFPAY | PROVIDERS: PCP Internal Medicine; Visit Provider Orthopaedic Surgery | DX: S83.241A Other tear of medial meniscus, current injury, right knee, initial encounter (principal) | CPT/HCPCS: 99212 ==

== ENCOUNTER 2024-01-26 05:55 | Day surgery (SDC) | payer OTHER, SELFPAY ==
[2024-01-22 10:29] VITALS: BMI 48.0
[2024-01-26] VITALS (9 sets, daily range): BP systolic 107–143; BP diastolic 58–81; PULSE 62–82; RESP 12–18; TEMP 36.2–36.7; O2SAT 97–100; BMI 48.4
[2024-01-26 06:25] LABS: UPreg QC Valid YES; Urine Pregnancy NEGATIVE (NEGATIVE)
[2024-01-26] MEDS: Lactated Ringers 1,000 ML 50 ML IVCONT (07:08)
--- NOTE | 2024-01-26 07:41 | P.CONAN_ITS ---
HPI - Anesthesia Eval Consult details Narrative: for arthroscopy knee PMFSH Active Problems Active Problems: All Active Problems Morbid obesity with BMI of 45.0-49.9, adult (Acute) Hx of gastric bypass (Acute) Chronic pain syndrome (Acute) Chronic sacroiliac joint pain (Acute) correction current use of opiate analgesic (Acute) Tear of medial meniscus of right knee (Acute) Right knee pain (Acute) S/P left knee arthroscopy (Acute) Osteoarthritis of left knee (Acute) Bilateral sacroiliitis (Acute) Left knee pain (Acute) Posterior left knee pain (Acute) Left hip pain (Acute) Left low back pain (Acute) Left shoulder pain (Acute) Physical exam (Acute) Family planning advice (Acute) ASCUS of cervix with negative high risk HPV (Acute) Trochanteric bursitis of left hip (Acute) control counseling (Acute) Potential exposure to STD (Acute) Well woman exam with routine gynecological exam (Acute) History of abnormal cervical Pap smear (Acute) Menorrhagia (Acute) Right foot pain (Acute) Osteoarthritis of left hip (Acute) Sacroiliitis (Acute) Morbid obesity (Acute) Past Medical History Medical History LGSIL (low grade squamous intraepithelial dysplasia) History of 2019 novel coronavirus disease (COVID-19) Right foot pain Osteoarthritis of left hip Sacroiliitis Morbid obesity Back pain Thoracic outlet syndrome Raynaud disease Family History Family History Mother Endometrial cancer Ovarian cancer Father Diabetes mellitus Family history of problems with anesthesia: No Surgical History Surgical History History of left knee surgery (10/10/23) Hx of gastric bypass History of Problems with Anesthesia: No Social History Social History Housing: House Are you a primary hospice home care coordinator to a significant other at home: No Do you presently have visiting nurse or other home services: No Alcohol intake: current Alcohol intake frequency: does not drink Patient Tobacco Use Status: Never used Tobacco e-Cigarette/Vaping Use: Never Used Second Hand Smoke Exposure: No Are you DNR?: No Advance Directives: No Advance Directives Information Provided: Yes Nutrition Risks: No Nutritional Risk Patient : No FDLMP: january 10 service: No Current occupational status: employed Current occupational exposures/hazards: No Sexual orientation: Straight/Heterosexual Cognitive needs: No Hearing needs: No Vision needs: Yes Meds Allergies Allergy/AdvReac Type Severity Reaction Status Date / Time No Known Allergies Allergy Verified 01/01/24 13:05 Active Medications: Current Medications Lactated Ringer's (Lr) 1,000 mls @ 50 mls/hr IVCONT .Q20H JEFFY Last Admin: 01/26/24 07:08 Dose: 50 mls/hr Home Medications ?Medication ?Instructions ?Recorded ?Confirmed ?Last Taken ?Type levonorgestrel 20.4 mcg/24 hrs (8 intrauterine 05/02/22 01/02/24 Unknown History yrs) 52 mg intrauterine device (Liletta) Exam Height,Weight and Vital Signs: Height 5 ft 8 in Weight 144.327 kg Last Vital Signs Temp 97.4 F 01/26/24 06:07 Pulse 82 01/26/24 06:07 Resp 18 01/26/24 06:07 BP 143/65 H 01/26/24 06:07 Pulse Ox 98 01/26/24 06:07 O2 Del Method Room Air 01/26/24 06:07 Pertinent Lab Results Pertinent Lab Results: Laboratory Tests 01/26/24 06:05 Urine Test NEGATIVE Airway Mallampati Class: II TM Dist: >3cm Neck ROM: Full Heart: rrr Lungs: cta Assessment and Plan Assessment Anesthesia Assessment: Anesthesia Plan Discussed and Chart Reviewed Final Anesthetic Review Family History of Problems with Anesthesia: No History of Problems with Anesthesia: No NPO: Yes ASA Class: III Final Preanesthetic Review: No Changes in Pt Med Stat, Meds/Allgs Chart Reviewed, Consent Obtained/Reviewed and Anes Risks/Benef Reviewed Patient Risk: Intermediate Procedure Risk: Low Anesthetic Plan Anesthetic Plan: GA Disposition: Standard PACU
[2024-01-26] MEDS: fentaNYL citrate/PF 100 MCG/2 ML VIAL 25 MCG IVPUSH ×2 (08:25→08:32)
--- NOTE | 2024-01-26 08:36 | PM.OP ---
Brief Operative Note Date of Service: 01/26/24 Pre-op diagnosis: Right knee medial meniscus tear, right knee degenerative joint disease Post-op diagnosis: same Procedure: Right knee diagnostic arthroscopy with right knee arthroscopic partial medial meniscectomy, right knee arthroscopic chondroplasty of the undersurface of the patella as well as the medial femoral condyle Implants: none Surgeon: Curt Guerrero MD Anesthesia: GLMA Was an Cold Working Inspector used for this Procedure?: No Estimated blood loss (mL): 10 Pathology: none sent Condition: stable Disposition: PACU
--- NOTE | 2024-01-26 08:37 | W.PM.OPN ---
Operative Note Operative Note Date of Service: 01/26/24 Narrative: After the patient was identified as Skip Jack and her right knee was initialed by myself they were brought to the operating room where general anesthesia was induced by the anesthesiologist in routine fashion. The patient was given IV Ancef for infection prophylaxis. A formal time-out was completed. The patient's right lower extremity was prepped and draped in sterile fashion. Marcaine with epinephrine was injected into the planned incision sites as well as their right knee joint. A # 11 scalpel blade was used to make an anterolateral portal 1 cm proximal to the joint line and 1 cm lateral to the patellar tendon. Blunt trocar technique was used into the suprapatellar pouch with the knee in extension. Diagnostic arthroscopy showed multiple bands of thickened plica which would be excised at the end of the procedure. There were no loose bodies or abnormalities found in either the medial or lateral gutters. There were diffuse grade 2 degenerative changes of the undersurface of the patella as well as grade 1 degenerative changes of the trochlear groove. The patient's knee was flexed to 45 degrees and a valgus force was placed upon it. The medial compartment was entered. An anteromedial portal was made 1 cm proximal to the joint line and 1 cm medial to the patellar tendon. Probing of the medial meniscus showed a radial tear of the anterior horn. A partial medial meniscectomy was performed using the arthroscopic shaver. Following the partial meniscectomy the remainder of the meniscus tissue was stable. There were diffuse grades 2 and 3 degenerative changes of the medial femoral condyle as well as diffuse grade 1 degenerative changes of the medial tibial plateau. The articular surface of the medial femoral condyle was made smooth using the arthroscopic shaver. The articular surface of the medial tibial plateau was already smooth so no chondroplasty was indicated. The patient's knee was then placed into a neutral position. There was no injury to the anterior cruciate ligament. The patient's knee was then placed into the figure of 4 position and the lateral compartment was entered. There were minimal degenerative changes of the lateral femoral condyle and lateral tibial plateau. There was no evidence of lateral meniscus tearing. The patient's knee was once again brought into extension and the suprapatellar pouch was entered. The arthroscopic shaver and the ArthroCare Wand were used to excise the thickened bands of plica. The undersurface of the patella was then made smooth using the arthroscopic shaver. The articular surface of the trochlear groove was already smooth so no chondroplasty was indicated. The knee joint was irrigated and then drained. All arthroscopic instruments were removed. The 2 portals were closed with 3-0 nylon interrupted suture. The knee joint was injected with Marcaine. Dry sterile dressing and Javier bandages were placed over the patient's knee. The patient was awoken and extubated in the operating room. They were transferred to the recovery room in stable condition.
[2024-01-26] MEDS: cefTRIAXone sodium 1 GM in 0.9 % Sodium Chloride 50 ML IV (08:40)
== END 2024-01-26 09:46 | disposition home or self-care (01) ==
PROVIDERS: Anesthesiology; PCP Internal Medicine; Visit Provider Orthopaedic Surgery
PROC: (CPT 29870; principal; 2024-01-26 07:30)
DX: S83.241A Other tear of medial meniscus, current injury, right knee, initial encounter (principal); M17.11 Unilateral primary osteoarthritis, right knee; M23.51 Chronic instability of knee, right knee; M67.51 Plica syndrome, right knee; M79.671 Pain in right foot; W22.8XXA Striking against or struck by other objects, initial encounter; Y93.F9 Activity, other caregiving; Y92.9 Unspecified place or not applicable; Y99.8 Other external cause status; I73.00 Raynaud's syndrome without gangrene; G54.0 Brachial plexus disorders; E66.01 Morbid (severe) obesity due to excess calories; Z68.42 Body mass index [BMI] 45.0-49.9, adult; Z79.899 Other long term (current) drug therapy; Z98.890 Other specified postprocedural states; Z98.84 Bariatric surgery status
CPT/HCPCS: 29881; 81025; J0131; J0171; J0690; J0696; J1100; J1885; J2250; J2405; J2704; J2795; J3010

== ENCOUNTER → 2024-01-26 05:55 | Outpatient (BNV) | payer OTHER, SELFPAY | PROVIDERS: PCP Internal Medicine; Visit Provider Orthopaedic Surgery | DX: S83.241A Other tear of medial meniscus, current injury, right knee, initial encounter (principal) | CPT/HCPCS: 29881 ==

== ENCOUNTER 2024-02-12 08:35 | Outpatient (AMB) | payer OTHER, SELFPAY ==
--- NOTE | 2024-02-12 08:40 | A.OFFVIS_ITS ---
Intake Visit Reasons: PO-Rt Knee 01/26/24 Intake Note: Sikp a 38 year old female who presents today for a post operative right knee on 01/26/24 Patient reports she is doing well, states her pain has been tolerable. Allergies No Known Allergies Allergy (Verified 02/12/24 08:55) HPI HPI PO-Rt Knee 01/26/24 DR: Details: 38-year-old female who returns to the office today for post-op right knee , 01/26/[address] Guerrero. She states she has tolerable pain and is doing well overall. She has no concerns today. [facility] Medical History LGSIL (low grade squamous intraepithelial dysplasia) History of 2019 novel coronavirus disease (COVID-19) Right foot pain Osteoarthritis of left hip Sacroiliitis Morbid obesity Back pain Thoracic outlet syndrome Raynaud disease Surgical History History of left knee surgery (10/10/23) Hx of gastric bypass Family History Mother Endometrial cancer Ovarian cancer Father Diabetes mellitus Social History Housing: House Are you a primary day care worker to a significant other at home: No Do you presently have visiting nurse or other home services: No Alcohol intake: current Alcohol intake frequency: does not drink Patient Tobacco Use Status: Never used Tobacco e-Cigarette/Vaping Use: Never Used Second Hand Smoke Exposure: No service: No Current occupational status: employed Current occupational exposures/hazards: No Sexual orientation: Straight/Heterosexual Cognitive needs: No Hearing needs: No Vision needs: Yes Female Reproductive History Menstrual Age of Menarche: 10 Review of Systems Const All systems reviewed & are unremarkable except as noted in HPI and below Physical Exam Extrem Other: Right knee Incision clean, dry and intact. No erythema or drainage. Rom is 0-95 degrees. Calf supple, nontender. NVI. Results Reviewed Results Reviewed: Brief Operative Note Date of Service: 01/26/24 Pre-op diagnosis: Right knee medial meniscus tear, right knee degenerative joint disease Post-op diagnosis: same Procedure: Right knee diagnostic arthroscopy with right knee arthroscopic partial medial meniscectomy, right knee arthroscopic chondroplasty of the undersurface of the patella as well as the medial femoral condyle Implants: none Surgeon: Curt Guerrero MD Assessment & Plan Assessment & Plan (1) Tear of medial meniscus of right knee: Code(s): S83.241A - Other tear of medial meniscus, current injury, right knee, initial encounter Category: Medical Plan Sutures removed today, steri strips applied. I recommend a course of physical therapy however she declined and will work on exercises at home. She was given a work to limit deep kneeling, bending, twisting, pivoting or squatting for the next 4 weeks at which point she will see me back with Dr. Guerrero, sooner if needed. Patient Instructions: Scribed for Brian Borrego PA-C, by Tommy Deng medical laboratory technical officer, on 02/12/2024 at 9:00 AM EST. I, Brian Borrego PA-C, have personally reviewed and agree with the information entered by the scribe. Coding Level of Care Code Global (35865) Diagnoses Tear of medial meniscus of right knee S83.241A
== END 2024-02-12 09:16 | disposition home or self-care (01) ==
PROVIDERS: PCP Internal Medicine; Visit Provider Physician Assistant
DX: S83.241A Other tear of medial meniscus, current injury, right knee, initial encounter (principal)
CPT/HCPCS: 99024

== ENCOUNTER → 2024-02-12 08:35 | Outpatient (BNVA) | payer OTHER, SELFPAY | PROVIDERS: PCP Internal Medicine; Visit Provider Physician Assistant | DX: S83.241D Other tear of medial meniscus, current injury, right knee, subsequent encounter (principal) | CPT/HCPCS: 99212 ==

== ENCOUNTER 2024-03-18 08:35 | Outpatient (AMB) | payer OTHER, SELFPAY ==
--- NOTE | 2024-03-18 08:36 | MHC.PC.OV ---
Vital Signs 03/18/24 08:39 Height 5 ft 8 in Weight 316 lb BMI 48.0 BP 114/72 Blood Pressure Location Lt brachial Position Sitting Intake Visit Reasons: Annual Exam Intake Note: Patient here for an annual physical exam Student Ministries Director Required: No Accompanied by: Self / Same As Patient Allergies No Known Allergies Allergy (Verified 03/18/24 08:47) Medication List - Last Reconciled 03/18/24 by Laury Platt MD diclofenac sodium 1% (Arthritis Pain (diclofenac)) 2 grams topical QID 30 days levonorgestrel (Liletta) intrauterine naloxone 4 mg/actuation (Narcan) 4 mg intranasal Q2M PRN tramadol 50 mg PO Q8H PRN 30 days Tobacco use date assessed: 03/18/24 Dental Screening Dental Screen Date: 03/18/24 Did you have a dental visit in the last 12 months?: Yes Did you have a dental problem in the last 6 months where you did not have access to dental care?: No Was dental information given to patient?: Patient has dentist HPI HPI Comments History of Present Illness Details This is a 38-year-old female with bilateral sacroiliitis and morbid obesity that comes for her physical exam. Last Pap smear was 2021. Bilateral sacroiliitis is follow by pain management. She is morbidly obese with a BMI of 48 and had gastric bypass in 2016 but gain weight. Has tried diet and exercise with no significant improvement. I will start her on Wegovy. [facility] Medical History LGSIL (low grade squamous intraepithelial dysplasia) History of 2019 novel coronavirus disease (COVID-19) Right foot pain Osteoarthritis of left hip Sacroiliitis Morbid obesity Back pain Thoracic outlet syndrome Raynaud disease Surgical History (Updated 03/18/24 @ 08:50 by Laury Platt MD) H/O lateral meniscus repair of right knee History of left knee surgery (10/10/23) Hx of gastric bypass Family History Mother Endometrial cancer Ovarian cancer Father Diabetes mellitus Social History (Updated 03/18/24 @ 08:51 by Laury Platt MD) Housing: House Are you a primary health care manager to a significant other at home: No Do you presently have visiting nurse or other home services: No Alcohol intake: current Alcohol intake frequency: does not drink Alcohol type: wine Patient Tobacco Use Status: Never used Tobacco e-Cigarette/Vaping Use: Never Used Second Hand Smoke Exposure: No service: No Current occupational status: employed Current occupational exposures/hazards: No Sexual orientation: Straight/Heterosexual Cognitive needs: No Hearing needs: No Vision needs: Yes Female Reproductive History Menstrual Age of Menarche: 10 Questionnaire PHQ-9 Over the last 2 weeks, how often have you been bothered by any of the following problems? 1. Little interest or pleasure in doing things: not at all 2. Feeling down, depressed, or hopeless: not at all 3. Trouble falling or staying asleep, or sleeping too much: not at all 4. Feeling tired or having little energy: not at all 5. Poor appetite or overeating: not at all 6. Feeling bad about yourself - or that you are a failure or have let yourself or your family down: not at all 7. Trouble concentrating on things, such as reading the newspaper or watching television: not at all 8. Moving or speaking so slowly that other people could have noticed. Or the opposite - being so fidgety or restless that you have been moving around a lot more than usual: not at all 9. Thoughts that you would be better off or of hurting yourself in some way: not at all Total score: 0 Depression Screening Interpretation: Negative Depression Screening Done: Yes 67099 - PHQ-9 Billing: Yes Source: Developed by Drs. Galdino Clay, Sanam Castaneda, Houston Masterson and colleagues, with an educational diya from [employer]. Thrive Questionnaire Date Thrive assessed: 03/18/24 I am a: Patient What is your living situation today?: I have a steady place to live Within the past 12 months, did the food you bought not last and you didn't have the money to get more?: Never true Within the past 12 months, did you worry whether your food would run out before you got money to buy more?: Never true Do you have trouble paying for medicines?: No Do you have trouble getting transportation to medical appointments?: No Do you have trouble paying your heating and electricity bill?: No Do you have trouble taking care of your child, family member or friend?: No Do you have trouble with day-to-day activities such as bathing, preparing meals, shopping, managing finances, etc.?: No Are you currently unemployed and looking for a job?: No Are you interested in more education?: No Please select the resources that you would like help with: None Currently or been in a relationship where the following occur: no concerns reported THRIVE Score: 0 AUDIT C Alcohol Use Questionnaire (AUDIT-C) 1. How often do you have a drink containing alcohol?: Monthly or less 2. How many drinks containing alcohol do you have on a typical day when you are drinking?: 1 or 2 3. How often do you have six or more drinks on one occasion?: Never Total Score: 1 Score Reviewed/Action Taken: No BECKI-7 AMB Questionnaire BECKI-7 Date BECKI - 7 assessed: 03/18/24 Feeling nervous, anxious, or on edge: 0 = Not at all Not being able to stop or control worryin = Not at all Worrying too much about different things: 0 = Not at all Trouble relaxin = Not at all Being so restless that it is hard to sit still: 0 = Not at all Becoming easily annoyed or irritable: 0 = Not at all Feeling afraid as if something awful might happen: 0 = Not at all Total BECKI-7 score (0-4 normal; 5-9 mild; 10-14 moderate; 15-21 severe): 0 Source: Developed by Drs. Galdino Clay, Sanam Castaneda, Houston Masterson and colleagues, with an educational diya from [employer]. BECKI-7 Assessment Billing BECKI-7 Assessment Tool: BECKI-7 Assessment 72947 Review of Systems Const All systems reviewed & are unremarkable except as noted in HPI and below Card Denies chest pain at rest, Denies chest pain with activity, Denies edema, Denies irregular heart rhythm, Denies claudication, Denies dyspnea, Denies dyspnea on exertion, Denies orthopnea, Denies paroxysmal nocturnal dyspnea and Denies slow heart rate Resp Denies cough, Denies dyspnea and Denies dyspnea on exertion GI Denies abdominal pain, Denies change in bowel habits, Denies excessive flatus, Denies nausea and Denies vomiting Neuro Denies behavioral changes, Denies confusion and Denies lack of coordination Psych Denies behavioral changes and Denies confusion Physical exam (Primary Care) Vital Signs: Last Vital Signs BP 114/72 03/18/24 08:39 BMI result Body Mass Index 48.0 BMI Assessment/Plan discussion: High BMI High, discussed plan: lifestyle, weight reduction, dietary, physical activity and alcohol moderation Tobacco/Smoking Status: Tobacco use Status Tobacco use date assessed 03/18/24 03/18/24 08:43 Patient Tobacco Use Status Never used Tobacco 03/18/24 08:38 e-Cigarette/Vaping Use Never Used 03/18/24 08:38 PHQ-9: PHQ-9 Score PHQ-9: Total score 0 03/18/24 08:43 Depression Screening Interpretation: Negative Thrive Assessment: Date of Thrive Assessment Date Thrive assessed 03/18/24 03/18/24 08:43 Currently or been in a relationship where the following occur: no concerns reported Const General: No confusion Orientation/consciousness: patient oriented x3 and No confusion HENMT Head: Yes normal to inspection, Yes normocephalic and Yes atraumatic Ears: external ears normal Eyes General: appearance normal, both eyes and all related structures Eyelids: Yes eyelids normal Conjunctivae: conjunctivae normal Neck Neck: Yes normal visual inspection and Yes supple Resp Effort & Inspection: normal respiratory effort Auscultation: clear to auscultation bilaterally Cardio Jugular venous distension: no JVD Rate: regular rate Rhythm: regular rhythm Heart sounds: S1 normal heart sound present and S2 normal heart sound present GI Inspection: Yes normal to inspection Palpation (GI): Soft to palpation and nontender Auscultation: normal bowel sounds Skin General skin exam: no rashes or lesions noted Neuro General: patient oriented x3, no focal motor deficits and No confusion Extrem General: Yes full ROM Psych Appearance: grossly normal Assessment and Plan Assessment & Plan (1) Physical exam: Comment: F/U's with Dr. Royal for PENETRATION TESTER care. Has a follow-up coming up. Due dental and eye exam Code(s): Z00.00 - Encounter for general adult medical examination without abnormal findings Plan: Repeat in a year. (2) Bilateral sacroiliitis: Code(s): M46.1 - Sacroiliitis, not elsewhere classified Plan: Follow-up with pain management. (3) Morbid obesity with BMI of 45.0-49.9, adult: Code(s): E66.01 - Morbid (severe) obesity due to excess calories; Z68.42 - Body mass index [BMI] 45.0-49.9, adult Plan: Start diet and exercise. Start Wegovy. BMI goal is less than 30. Orders: Orders Complete Blood Count Auto Diff Today D64.9 - Anemia, unspecified IRON PROFILE Today D64.9 - Anemia, unspecified Comprehensive Drake. Panel Fast Today Z00.00 - Encounter for general adult medical examination without abnormal findings Lipid Panel Today Z00.00 - Encounter for general adult medical examination without abnormal findings Medications: New semaglutide (weight loss) (Wegovy) administer weeks 1 through 4 of therapy 0.25 mg (0.5 mL) subcut QWEEK 4 weeks 2 mL 0RF E66.01 - Morbid (severe) obesity due to excess calories, Z68.42 - Body mass index [BMI] 45.0-49.9, adult Coding Level of Care Code Est Pt Prev Care 18-39y(41659) Diagnoses Physical exam Z00.00 Bilateral sacroiliitis M46.1 Morbid obesity with BMI of 45.0-49.9, adult E66.01; Z68.42 Additional Codes BECKI-7 Assessment Billing - BECKI-7 Assessment Tool: BECKI-7 Assessment 00969 ([id number]) Time Spent (min) 33
[2024-03-18 08:39] VITALS: BP 114/72; BMI 48.0
== END 2024-03-18 08:58 | disposition home or self-care (01) ==
PROVIDERS: PCP Internal Medicine; Visit Provider Internal Medicine
DX: Z00.00 Encounter for general adult medical examination without abnormal findings (principal); M46.1 Sacroiliitis, not elsewhere classified; E66.01 Morbid (severe) obesity due to excess calories; Z68.42 Body mass index [BMI] 45.0-49.9, adult
CPT/HCPCS: 99395

== ENCOUNTER 2024-07-08 10:55 | Outpatient (AMB) | payer OTHER, SELFPAY ==
[2024-07-08 10:58] VITALS: BP 118/74; PULSE 66; O2SAT 100; BMI 46.7
--- NOTE | 2024-07-08 10:58 | A.OFFPC_ITS ---
Vital Signs 07/08/24 10:58 Height 5 ft 8 in Weight 307 lb 0.6 oz BMI 46.7 BP 118/74 Blood Pressure Location Lt brachial Position Sitting Pulse 66 Pulse Source Pulse Oximeter Pulse Oximetry (%) 100 Oxygen Delivery Method Room Air Intake Visit Reasons: Leg pain/cellulitus Intake Note: pt c/o of left leg pain with no relief. Patient had been seen at [facility] 06/19/24. 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 Required: No Allergies No Known Allergies Allergy (Verified 07/08/24 10:59) Medication List - Last Reconciled 07/08/24 by Deonna Bowens PA-C diclofenac sodium 1% (Arthritis Pain (diclofenac)) 2 grams topical QID 30 days doxycycline hyclate 100 mg PO BID 5 days levonorgestrel (Liletta) intrauterine naloxone 4 mg/actuation (Narcan) 4 mg intranasal Q2M PRN tramadol 50 mg PO Q8H PRN 30 days Tobacco use date assessed: 03/18/24 Dental Screening Dental Screen Date: 03/18/24 HPI Leg pain/cellulitus HPI Details 38-year-old female with bilateral sacroi liitis and morbid obesity that comes for acute problem. Patient was seen in [facility] ER 06/19/2024 for left leg cellulitis, no evidence of DVT and treated with Keflex. Patient states her symptoms began about 2-3 weeks ago with leg swelling pain and redness. DVT was ruled out and she was treated with Keflex. Since finishing the antibiotics she continues to have redness which has been spreading and continues to have pain and warmth in the same area. Denies any calf swelling bilaterally and redness has been spreading up over her knee. She stands at work and has been having this continued discomfort. She does mention the redness has gotten less pronounced since the initial ER visit. [facility] Medical History (Updated 07/08/24 @ 12:21 by Deonna Bowens PA-C) LGSIL (low grade squamous intraepithelial dysplasia) History of 2019 novel coronavirus disease (COVID-19) Right foot pain Osteoarthritis of left hip Sacroiliitis Morbid obesity Back pain Thoracic outlet syndrome Raynaud disease Surgical History (Updated 03/18/24 @ 08:50 by Laury Platt MD) H/O lateral meniscus repair of right knee History of left knee surgery (10/10/23) Hx of gastric bypass Family History Mother Endometrial cancer Ovarian cancer Father Diabetes mellitus Social History (Updated 03/18/24 @ 08:51 by Laury Platt MD) Housing: House Are you a primary foster care case manager to a significant other at home: No Do you presently have visiting nurse or other home services: No Alcohol intake: current Alcohol intake frequency: does not drink Alcohol type: wine Patient Tobacco Use Status: Never used Tobacco e-Cigarette/Vaping Use: Never Used Second Hand Smoke Exposure: No service: No Current occupational status: employed Current occupational exposures/hazards: No Sexual orientation: Straight/Heterosexual Cognitive needs: No Hearing needs: No Vision needs: Yes Female Reproductive History Menstrual Age of Menarche: 10 Questionnaire Thrive Questionnaire Date Thrive assessed: 03/18/24 Are you currently unemployed and looking for a job?: No AUDIT C Alcohol Use Questionnaire (AUDIT-C) 1. How often do you have a drink containing alcohol?: Never 2. How many drinks containing alcohol do you have on a typical day when you are drinking?: 1 or 2 3. How often do you have six or more drinks on one occasion?: Never Total Score: 0 BECKI-7 AMB Questionnaire BECKI-7 Date BECKI - 7 assessed: 03/18/24 Source: Developed by Drs. Galdino Clay, Sanam Castaneda, [place] Masterson and colleagues, with an educational diya from [employer]. Review of Systems Const Denies body aches, Denies chills and Denies fever(s) Eyes Reports no additional complaints ENT Reports no additional complaints Card Denies chest pain, Denies syncope, Denies edema, Denies leg ulcers, Reports leg edema and Denies dyspnea Resp Denies dyspnea GI Reports no additional complaints Musc Reports as per HPI Skin/Breast Reports as per HPI Neuro Denies syncope Physical exam (Primary Care) Vital Signs: Last Vital Signs Pulse 66 07/08/24 10:58 BP 118/74 07/08/24 10:58 Pulse Ox 100 07/08/24 10:58 Oxygen Delivery Method Room Air 07/08/24 10:58 BMI result Body Mass Index 46.7 Tobacco/Smoking Status: Tobacco use Status Tobacco use date assessed 03/18/24 07/08/24 10:59 Patient Tobacco Use Status Never used Tobacco 07/08/24 10:59 e-Cigarette/Vaping Use Never Used 07/08/24 10:59 Thrive Assessment: Date of Thrive Assessment Date Thrive assessed 03/18/24 07/08/24 10:59 Const General: cooperative, healthy appearing, comfortable and no acute distress Orientation/consciousness: patient oriented x3 HENMT Head: Yes normocephalic Ears: hearing grossly normal bilaterally General nose exam: Normal external nose present Eyes General: appearance normal, both eyes and all related structures Conjunctivae: conjunctivae normal Neck Neck: Yes full ROM and Yes no lymphadenopathy Resp Effort & Inspection: normal respiratory effort Auscultation: clear to auscultation bilaterally, no crackles, no rales, no rhonchi and no wheezes Cardio Rate: regular rate Rhythm: regular rhythm Skin Other: mild erythema and warmth over medial aspect of left knee with tenderness to palpation and bilateral 1+ pitting edema of lower extremities. Pulses and sensation intact in bilateral lower extremities Neuro General: patient oriented x3 Gait exam (Neuro): Normal gait present Extrem General: Yes normal to inspection, Yes full ROM and No edema Psych Affect: normal affect Attitude: cooperative Insight: Good insight present (Psych) Judgement: Good judgement present (Psych) Coding Level of Care Code Est Pt Level 3 (45588) Diagnoses Cellulitis L03.90 Assessment & Plan Assessment & Plan (1) Cellulitis: Code(s): L03.90 - Cellulitis, unspecified Category: Medical Plan: Patient continues to have erythema and of the medial aspect of the left knee without pain to palpation of the knee joint. Likely the cellulitis did not clear from initial infection and will treat with additional round of antibiotics. Doxycycline BID x5 days given and advised patient to follow up if pain worsens or does not improve. Reviewed red flag symptoms and when to present to the ER. Symptoms have not changed and no palpable lump, swelling or redness of bilateral calves so DVT suspicion is low. Plan This note was constructed using voice recognition software. While every effort has been made to ensure accuracy and swimming pool attendant, still areas may have been included sometimes these areas may affect the content or meeting of the given symptoms. Total time spent caring for the patient today was 30 minutes. This includes time spent before the visit reviewing the chart, time spent during the visit, and time spent after the visit and documentation. Medications: New doxycycline hyclate 100 mg PO BID 5 days 10 tabs 0RF
== END 2024-07-08 11:26 | disposition home or self-care (01) ==
PROVIDERS: PCP Internal Medicine
DX: L03.90 Cellulitis, unspecified (principal)

== ENCOUNTER → 2024-07-08 10:55 | Outpatient (BNVA) | payer OTHER, SELFPAY | PROVIDERS: PCP Internal Medicine | DX: L03.90 Cellulitis, unspecified (principal) | CPT/HCPCS: 99212 ==

== ENCOUNTER 2024-07-29 11:23 | Outpatient (AMB) | payer OTHER, SELFPAY ==
[2024-07-29 11:29] VITALS: BP 126/82; PULSE 70; O2SAT 98; BMI 46.4
--- NOTE | 2024-07-29 11:29 | A.OFFPC_ITS ---
Vital Signs 07/29/24 11:29 Height 5 ft 8 in Weight 305 lb BMI 46.4 BP 126/82 Blood Pressure Location Lt brachial Position Sitting Pulse 70 Pulse Source Pulse Oximeter Pulse Oximetry (%) 98 Oxygen Delivery Method Room Air Intake Visit Reasons: f/u leg pain Allergies No Known Allergies Allergy (Verified 07/08/24 10:59) Medication List - Last Reconciled 07/29/24 by Deonna Bowens PA-C diclofenac sodium 1% (Arthritis Pain (diclofenac)) 2 grams topical QID 30 days levonorgestrel (Liletta) intrauterine naloxone 4 mg/actuation (Narcan) 4 mg intranasal Q2M PRN tramadol 50 mg PO Q8H PRN 30 days Tobacco use date assessed: 03/18/24 Dental Screening Dental Screen Date: 03/18/24 HPI f/u leg pain HPI Details 38-year-old female with bilateral sacroi liitis and morbid obesity that comes for acute problem. Patient was seen July 2024 for continued leg swelling and pain after having been treated for cellulitis with Keflex and DVT ruled out. Patient states her lower extremity has been feeling much better and redness has improved. Denies any fevers or calf swelling and pain. She does continue to have tenderness in the left lower extremity on the medial aspect of the knee with palpable firm tissue. [facility] Medical History (Updated 07/29/24 @ 12:28 by Deonna Bowens PA-C) LGSIL (low grade squamous intraepithelial dysplasia) History of 2019 novel coronavirus disease (COVID-19) Right foot pain Osteoarthritis of left hip Sacroiliitis Morbid obesity Back pain Thoracic outlet syndrome Raynaud disease Surgical History (Updated 03/18/24 @ 08:50 by Laury Platt MD) H/O lateral meniscus repair of right knee History of left knee surgery (10/10/23) Hx of gastric bypass Family History Mother Endometrial cancer Ovarian cancer Father Diabetes mellitus Social History (Updated 03/18/24 @ 08:51 by Laury Platt MD) Housing: House Are you a primary care management assistant to a significant other at home: No Do you presently have visiting nurse or other home services: No Alcohol intake: current Alcohol intake frequency: does not drink Alcohol type: wine Patient Tobacco Use Status: Never used Tobacco e-Cigarette/Vaping Use: Never Used Second Hand Smoke Exposure: No service: No Current occupational status: employed Current occupational exposures/hazards: No Sexual orientation: Straight/Heterosexual Cognitive needs: No Hearing needs: No Vision needs: Yes Female Reproductive History Menstrual Age of Menarche: 10 Questionnaire Thrive Questionnaire Date Thrive assessed: 03/18/24 Are you currently unemployed and looking for a job?: No AUDIT C Alcohol Use Questionnaire (AUDIT-C) 1. How often do you have a drink containing alcohol?: Never 2. How many drinks containing alcohol do you have on a typical day when you are drinking?: 1 or 2 3. How often do you have six or more drinks on one occasion?: Never Total Score: 0 BECKI-7 AMB Questionnaire BECKI-7 Date BECKI - 7 assessed: 03/18/24 Source: Developed by Drs. Galdino Clay, Sanam Castaneda, Houston xavier nd colleagues, with an educational diya from [employer]. Review of Systems Const Denies body aches, Denies chills, Denies fever(s) and Denies poor appetite Eyes Reports no additional complaints ENT Reports no additional complaints Card Denies chest pain, Denies lightheadedness and Denies dyspnea Resp Denies dyspnea GI Reports no additional complaints Reports no additional complaints Musc Reports as per HPI and Denies abnormal gait Skin/Breast Details: Erythema of lower extremity has resolved Reports system reviewed and no additional complaints, except as documented Neuro Denies abnormal gait Psych Reports no additional complaints Physical exam (Primary Care) Vital Signs: Last Vital Signs Pulse 70 07/29/24 11:29 BP 126/82 07/29/24 11:29 Pulse Ox 98 07/29/24 11:29 Oxygen Delivery Method Room Air 07/29/24 11:29 BMI result Body Mass Index 46.4 Tobacco/Smoking Status: Tobacco use Status Tobacco use date assessed 03/18/24 07/29/24 11:29 Patient Tobacco Use Status Never used Tobacco 07/29/24 11:29 e-Cigarette/Vaping Use Never Used 07/29/24 11:29 Thrive Assessment: Date of Thrive Assessment Date Thrive assessed 03/18/24 07/29/24 11:29 Const General: cooperative, healthy appearing, comfortable and no acute distress Orientation/consciousness: patient oriented x3 HENMT Head: Yes normocephalic Ears: hearing grossly normal bilaterally General nose exam: Normal external nose present Eyes General: appearance normal, both eyes and all related structures Conjunctivae: conjunctivae normal Neck Neck: Yes full ROM and Yes no lymphadenopathy Resp Effort & Inspection: normal respiratory effort Auscultation: clear to auscultation bilaterally, no crackles, no rales, no rhonchi and no wheezes Cardio Rate: regular rate Rhythm: regular rhythm Skin General skin exam: no rashes or lesions noted Neuro General: patient oriented x3 Gait exam (Neuro): Normal gait present Extrem Other: Palpable cord like mass on medial aspect of left knee with tenderness to palpation. No erythema, swelling or tenderness to bilateral calves. Bilateral lower extremity pulses intact General: Yes normal to inspection, Yes full ROM and No edema Psych Affect: normal affect Attitude: cooperative Insight: Good insight present (Psych) Judgement: Good judgement present (Psych) Coding Level of Care Code Est Pt Level 4 (39963) Diagnoses Thrombophlebitis I80.9 Assessment & Plan Assessment & Plan (1) Thrombophlebitis: Code(s): I80.9 - Phlebitis and thrombophlebitis of unspecified site Category: Medical Plan: DVT unlikely at this time due to lack of calf swelling or pain. Tenderness is focal in the medial aspect of the left knee with palpable cord-like mass. Ordered for ultrasound for further evaluation. Discussed with patient this is most likely superficial thrombophlebitis which should be treated with compression stockings, elevation, warm compress and pain management with Tylenol and ibuprofen. No evidence of infection at this time and follow up as needed. Plan This note was constructed using voice recognition software. While every effort has been made to ensure accuracy and dredge pipeman, still areas may have been included sometimes these areas may affect the content or meeting of the given symptoms. Total time spent caring for the patient today was 30 minutes. This includes time spent before the visit reviewing the chart, time spent during the visit, and time spent after the visit and documentation. Orders: Orders US arterial duplex LE LT Today I80.9 - Phlebitis and thrombophlebitis of unspecified site
== END 2024-07-29 12:00 | disposition home or self-care (01) ==
PROVIDERS: PCP Internal Medicine
DX: I80.9 Phlebitis and thrombophlebitis of unspecified site (principal)

== ENCOUNTER → 2024-07-29 11:23 | Outpatient (BNVA) | payer OTHER, SELFPAY | PROVIDERS: PCP Internal Medicine | DX: I80.9 Phlebitis and thrombophlebitis of unspecified site (principal) | CPT/HCPCS: 99212 ==

== ENCOUNTER 2024-08-10 08:05 | Outpatient (REF) | payer OTHER, SELFPAY ==
--- NOTE | ~2024-08-10 | US_ITS ---
EXAMINATION: US TRIPLEX LOWER EXTREMITY, LEFT CLINICAL INFORMATION: Phlebitis and thrombophlebitis of unspecified site left leg. Painful cordlike structure, lumps medial proximal left calf. COMPARISON: None available. TECHNIQUE: Color-flow triplex imaging with spectral analysis and compression Doppler were performed on the left lower extremity. FINDINGS: Respiratory variation, normal compression and augmented flow are noted throughout the left lower extremity. The visualized common femoral vein, superficial femoral vein, profunda femoral vein, popliteal vein and midcalf peroneal and posterior tibial venous segments show no evidence of deep venous thrombosis. There is no Santos's cyst. Targeted ultrasound images were obtained by the marketing designer of the area of concern as indicated by the patient in the proximal medial left calf and demonstrated a varicose vein which demonstrates no significant thrombus. Radiologist was not in attendance. Images were later provided for interpretation. US/US venous duplex LE LT IMPRESSION: No evidence of deep venous thrombosis involving the left lower extremity. Targeted ultrasound images were obtained by the marketing designer of the area of concern as indicated by the patient in the proximal medial left calf and demonstrated a varicose vein which demonstrates no significant thrombus. This study was presented today, August 10, 2024, for interpretation. Stat results provided at this time as requested by referring provider. Electronically signed by: Catalina Mejia MD 08/10/2024 09:49 AM [facility] PIMENTEL
== END 2024-08-10 08:06 | disposition home or self-care (01) ==
LOC: HO.US 08:05
PROVIDERS: PCP Internal Medicine
DX: I80.9 Phlebitis and thrombophlebitis of unspecified site (principal)
CPT/HCPCS: 93971

== ENCOUNTER 2025-03-07 11:16 | Outpatient (REF) | payer SELFPAY ==
--- OUTSIDE RECORDS SUMMARY | 2025-03-07 12:36 | XMS_ITS | Clinical Summary ---
Author Organization [facility] it Address [address] [place] [address] Care Team Providers Care Cheese Processor Name Role Phone Laury Platt MD Primary Care Provider [phone] Surgical History Surgery Date Site/Laterality Comments GASTRIC BYPASS PROCEDURE:GASTRIC BYPASS KNEE ARTHROSCOPY Bilateral PROCEDURE:KNEE ARTHROSCOPY Social History Tobacco Use Types Packs/Day Years Used Date Smoking Tobacco: Never Smokeless Tobacco: Never Alcohol Use Standard Drinks/Week Comments Yes 0 (1 standard drink = 0.6 oz pur e alcohol) Comments Unknown Sex and Gender Information Value Date Recorded Sex Assigned at Not on file Legal Sex Female 10:04 AM EST Gender Identity Not on file Sexual Orientation Not on file Obstetrics History Plan of Treatment Health Maintenance Due Date Last Done Comments DTaP,Tdap,and Td Vaccines (1 - Tdap) 2004 Hepatitis B Vaccines (1 of 3 - 19+ 3-dose series) 2004 Cervical Cancer Screening: P ap Smear 2006 Depression Screening 09/03/2022 HIV Screening 09/03/2022 Hepatitis C Screening 09/03/2022 Social Influencers of Health Screening 09/03/2022 COVID-19 Vaccine ( - 2023-2 5 season) 2024 Influenza Vaccine (Season Ended) 2025 HIB Vaccines Aged Out No longer eligi ble based on patient's age to complete this topic HPV Vaccines Aged Out No longer eligi ble based on patient's age to complete this topic Hepatitis A Vaccines Aged Out No long er eligible based on patient's age to complete this topic IPV Vaccines Aged Out No longer eligi ble based on patient's age to complete this topic MMR Vaccines Aged Out No longer eligi ble based on patient's age to complete this topic Meningococcal ACWY Vaccine Aged Out N o longer eligible based on patient's age to complete this topic Meningococcal B Vaccine Aged Out No l onger eligible based on patient's age to complete this topic Pneumococcal Vaccine: Pediat rics (0 to 5 Years) and At-Risk Patients (6 to 64 Years) Aged Out No longer eligible b ased on patient's age to complete this topic RSV Immunization Patients Un jose 20 months Aged Out No longer eligible b ased on patient's age to complete this topic Varicella Vaccines Aged Out No longer eligible based on patient's age to complete this topic Advance Directives Documents on File Type Date Recorded 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
[2025-03-07 14:19] LABS: MANUAL DIFF FLAG NO
[2025-03-07 14:39] LABS: Iron 22 mcg/dL (30-160); Percent Iron Saturation 6 % (15-50); Total Iron Binding Capacity 369 mcg/dL (228-428); Unsaturated Iron Binding 347 ug/dL
[2025-03-07 14:42] LABS: Basophils Percent Auto 0.5 % (0-2); Eosinophils Absolute Auto 0.1 X10*3/uL (0.0-0.4); Eosinophils Percent Auto 1.2 % (0-4); Hematocrit 34.7 % (37.0-47.0); Hemoglobin 10.5 g/dl (12.0-16.0); Imm Gran Abs Auto 0.02 X10*3/uL (0.00-0.03); Imm Gran Pct Auto 0.3 % (0.0-0.4); Lymphocytes Absolute Auto 1.8 X10*3/uL (1.2-4.9); Lymphocytes Percent Auto 27.1 % (20-40); Mean Corpuscular HGB Conc 30.3 g/dl (31.0-35.0); Mean Corpuscular Volume 69.5 fL (80.0-98.0); Monocytes Absolute Auto 0.4 X10*3/uL (0.1-1.2); Monocytes Percent Auto 5.5 % (2-11); Neutrophils Absolute Auto 4.3 x10*3/uL (2.0-8.3); Neutrophils Percent Auto 65.4 % (45-73); Platelet Count 113 X10*3/uL (160-400); Red Blood Count 4.99 X10*6/uL (4.20-5.50); Red Cell Distribution Width 18.5 % (11.0-16.0); White Blood Count 6.5 X10*3/uL (4.8-10.8)
[2025-03-07 15:14] LABS: Folate 7.9 ng/mL (> or = 4.0); Vitamin B12 398 pg/mL (200-900)
[2025-03-08 08:27] LABS: HIV AB/AG Nonreactive (Nonreactive); HIV Num 1 0.07 S/CO (0.00-0.99); ~HepC Num1 0.13 S/CO (0.00-0.79); ~Hepatitis C Antibody Nonreactive (Nonreactive)
== END 2025-03-07 11:17 | disposition home or self-care (01) ==
LOC: HO.CHCLDS 11:16
PROVIDERS: Visit Provider Internal Medicine
DX: M54.50 Low back pain, unspecified (principal); G89.29 Other chronic pain
CPT/HCPCS: 36415; 82607; 82746; 83540; 85025; 86803; 87389

== ENCOUNTER 2025-05-30 08:07 | Outpatient (REF) | payer SELFPAY ==
--- OUTSIDE RECORDS SUMMARY | 2025-05-30 08:18 | XMS_ITS ---
[facility] Name [facility] Organization Unknown Results Test Name/Text Value Interpretation Date Range Source GLUCOSE SERPL [facility] 106.0 mg/dL Normal 06/19/2024 70 - 199 [facility] ANION GAP SERPL [facility] 6.0 mmol/L Normal 06/19/2024 5 - 14 [facility] POTASSIUM SERPL [facility] 3.9 mmol/L Normal 06/19/2024 3.5 - 5 .1 [facility] BUN SERPL [facility] 16.0 mg/dL Normal 06/19/2024 7 - 17 [facility] HS CALCIUM SERPL [facility] 8.8 mg/dL Normal 06/19/2024 8.4 - 10.2 [facility] Glomerular filtration rate/1.73 sq M. predicted 113.0 Normal 06/19/2024 60 - [facility] CREAT SERPL [facility] 0.7 mg/dL Normal 06/19/2024 0.5 - 1 [facility] HCO3 SER SCNC 26.0 mmol/L Normal 06/19/2024 24 - 32 [facility] SODIUM SERPL SCNC 138.0 mmol/L Normal 06/19/2024 135 - 14 5 [facility] CHLORIDE SERPL [facility] 106.0 mmol/L Normal 06/19/2024 98 - 1 07 [facility] WBC NO. BLD AUTO 4.6 K/uL Normal 06/19/2024 4 - 10.5 CT [facility] MCV RBC AUTO 66.8 fL Below low normal 06/19/2024 78 - 100 [facility] MONOCYTES NFR BLD AUTO 6.3 % Normal 06/19/2024 2 - 12 [facility] BASOPHILS NFR BLD AUTO 0.7 % Normal 06/19/2024 0 - 2 [facility] RBC NO. BLD AUTO 4.88 M/uL Normal 06/19/2024 4.2 - 5.4 [facility] IMMATURE GRANULOCYTE, PERCENT 0.2 % Normal 06/19/2024 0 - 1 [facility] EOSINOPHIL NFR BLD AUTO 2.0 % Normal 06/19/2024 0 - 6 [facility] BASOPHILS IN BLOOD BY AUTOMATED COUNT 0.0 K/uL Normal 06/19/2024 0 - 0.2 [facility] NEUTROPHILS NO. BLD AUTO 2.7 K/uL Normal 06/19/2024 1.8 - 7.8 [facility] IMMATURE GRANULOCYTE, ABSOLUTE 0.01 k/uL Normal 06/19/2024 - 0.1 [facility] MCH RBC QN AUTO 20.1 pg Below low normal 06/19/2024 25 - 3 3 [facility] MONOCYTES NO. BLD AUTO 0.3 K/uL Normal 06/19/2024 0 - 0. 8 [facility] NUCLEATED RBC 0.0 % Normal 06/19/2024 0 - 1 [facility] LYMPHOCYTES NFR BLD AUTO 32.2 % Normal 06/19/2024 20 - 48 [facility] HCT VFR BLD AUTO 32.6 % Below low normal 06/19/2024 37 - 47 [facility] NEUTROPHILS NFR BLD AUTO 58.6 % Normal 06/19/2024 44 - 74 [facility] LYMPHOCYTES NO. BLD AUTO 1.5 K/uL Normal 06/19/2024 1 - 3.2 [facility] RDW RBC AUTO RTO 19.0 % Above high normal 06/19/2024 12.1 - 16.2 [facility] EOSINOPHIL NO. BLD AUTO 0.1 K/uL Normal 06/19/2024 0 - 0 .5 [facility] PMV BLD AUTO ABNORMAL Normal 06/19/2024 7.4 - 11.4 [facility] MCHC RBC AUTO MCNC 30.1 g/dL Below low normal 06/19/2024 32 - 36 [facility] PLATELET NO. BLD AUTO 193.0 K/uL Normal 06/19/2024 150 - 450 [facility] HGB BLD MCNC 9.8 g/dL Below low normal 06/19/2024 12.5 - 16 [facility] History of Medication Use Medication Directions Dispensed Refills Start Date End Date Stat ceFAZolin (ANCEF) injection 1,000 mg 1,000 mg, Intravenous, Once, On 06/19/24 at 1030, For 1 doseFor Adults, if ordered IV then reconstitute each 1GM vial with 10mL sterile water or normal saline and administer IV Push over 3-5 minutes. 06/19/2024 06/19/2024 completed ketorolac (TORADOL) injection 15 mg 15 mg, Intramuscular, Once, On Debby 04/15/24 at 1000, For 1 dose 04/15/2024 04/15/2024 completed predniSONE (DELTASONE) tablet 10 mg Prednisone 10 mg tablets - Disp. #40 - Si tabs daily x 3 days; 4 tabs daily x 3 days; 2 tabs daily x 3 days; 1 tab daily x 3 days 04/15/2024 active lidocaine (LIDODERM) 5 % Place 1 patch onto the skin daily. Remove & Discard patch within 12 hours or as directed by MD 02/06/2023 active Allergies Allergen Reaction Severity Comment Documented Date Source Statu s NSAIDS Patient had gas tric bypass, told not to take nsaids 02/06/2023 [facility] active Problems Problem Status Onset Date Problem Type Date of Resoluti on Source Cellulitis of left leg active EncounterDiagnosisAct [facility] Anemia active EncounterDiagnosisAct [facility] Encounters Encounter Type Encounter Reason Primary Diagnosis Location Date Emergency Cellulitis of left lower limb Cellulitis of left lower limb [facility] 06/19/2024 Emergency Low back pain, unspecified Low back pain, unspecified [facility] 04/15/2024 Emergency Strain of unspecifie d muscle(s) and tendon(s) at lower leg level, unspecified leg, initial encounter Strain of unspecified muscle(s) and tendon(s) at lower leg level, unspecified leg, initial encounter [facility] 06/04/2023 Care Team Organization Name Specialty Phone Email Start Date End Da perfecto [facility] 04/15/2024 [facility] 06/05/2023 04/19/2025 [facility]AN [facility] 06/04/2023
--- OUTSIDE RECORDS SUMMARY | 2025-05-30 08:18 | XMS_ITS | Clinical Summary ---
Author Organization [facility] Address [address] [place] [address] Care Team Providers Care Correctional Supply Supervisor Name Role Phone Laury Osorio MD Primary Care Provid er Allergies Active Allergy Reactions Criticality Noted Date Comments Nsaids 02/06/2023 Patient had gastric bypass, told not to take nsaids Medications Medication Sig Dispensed Refills Start Date End Date Status traMADol (ULTRAM) 50 MG tablet Take 50 mg by mouth 2 (two) times a day as needed. for pain 0 03/29/2022 Active lidocaine (LIDODERM) 5 % Place 1 patch onto the skin daily. Remove & Discard patch within 12 hours or as directed by 30 patch 0 02/06/2023 Active predniSONE (DELTASONE) tablet 10 mg Prednisone 10 mg tablets - Disp. #40 - Si tabs daily x 3 days; 4 tabs daily x 3 days; 2 tabs daily x 3 days; 1 tab daily x 3 days 40 tablet 0 04/15/2024 Active cephalexin (KEFLEX) 500 MG capsule Take 1 capsule (500 mg total) by mouth 4 (four) times a day. 28 capsule 0 06/19/2024 Active Active Problems No known active problems Social History Tobacco Use Types Packs/Day Years Used Date Smoking Tobacco: Never Smokeless Tobacco: Never Tobacco Cessation:Counseling Given: Not Answered Alcohol Use Standard Drinks/Week Comments Yes 0 (1 standard drink = 0.6 oz pur e alcohol) social Sex and Gender Information Value Date Recorded Sex Assigned at Female 08/17/2021 8:44 AM EST Gender Identity Not on file Sexual Orientation Not on file Job Start Date Occupation Industry Not on file Not on file Not on file Last Filed Vital Signs Vital Sign Reading Time Taken Comments Blood Pressure 127/81 06/19/2024 8:40 AM EDT Pulse 65 06/19/2024 8:40 AM EDT Temperature 36.7 C (98.1 F) 06/19/2024 8:40 AM EDT Respiratory Rate 18 06/19/2024 8:40 AM EDT Oxygen Saturation 100% 06/19/2024 8:40 AM EDT Inhaled Oxygen Concentration - - Weight 140.7 kg (310 lb 4.4 oz) 06/19/2024 8:40 AM EDT Height 170.2 cm (5' 7 ) 06/19/2024 8:40 AM EDT Body Mass Index 48.6 06/19/2024 8:40 AM EDT Plan of Treatment Health Maintenance Due Date Last Done Comments Hepatitis B Vaccines (1 of 3 - 3-dose series) 1985 Hepatitis C Screening 1985 COVID-19 Vaccine (#1) 02/04/1986 Depression Screening 1997 Preventative Health Evaluation 2003 DTap / Tdap / Td (1 - Tdap) 2004 Cervical Cancer Screening (P ap Smear) 2006 Influenza Vaccine (#1) 2025 Pneumococcal Vaccine Aged Out No long er eligible based on patient's age to complete this topic RSV Ped < 20 months Aged Out No longe r eligible based on patient's age to complete this topic Care Teams Correctional Supply Supervisor Relationship Specialty Start Date End Date Laury Osorio MD [address] [place] [address] , [address] Physician [facility] D/B/A: [facility] [place] [address] PCP - General Internal Medicine 04/23/22
--- OUTSIDE RECORDS SUMMARY | 2025-05-30 08:18 | XMS_ITS | Clinical Summary ---
Author Organization [facility] it Address [address] [place] [address] Care Team Providers Care Senior Gl Accountant Name Role Phone Laury Platt MD Primary Care Provider [phone] Surgical History Surgery Date Site/Laterality Comments GASTRIC [...] Cervical Cancer Screening: P ap Smear 2006 HIV Screening 09/03/2022 Hepatitis C Screening 09/03/2022 Social Influencers of Health Screening 09/03/2022 COVID-19 Vaccine (1 - 2023-2 5 season) 2024 Depression Screening 10/06/2024 Influenza Vaccine (#1) 2025 HIB Vaccines Aged Out No longer [...] 5 Years) and At-Risk Patients (6 to 49 Years) Aged Out No longer eligible b ased on patient's age to complete this topic RSV Immunization Patients Un jose 20 months Aged Out No longer eligible b ased on patient's age to complete this topic Varicella Vaccines Aged Out No longer eligible based on patient's age to complete this topic Advance Directives Documents on File Type Date 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
--- OUTSIDE RECORDS SUMMARY | 2025-05-30 08:18 | XMS_ITS | Clinical Summary ---
Author Organization [employer] Address [address] [place] [address] [address] [place] [address] Care Team Providers Care Gig Tender Name Role Phone Jamil Garza MD Primary Care Prov ider Allergies No known active allergies Medications ferrous gluconate (Fergon) 324 (38 Fe) MG tablet Take 1 tablet (324 mg) by mouth with breakfast. 90 tablet 3 03/11/20 25 026 Active pregabalin (Lyrica) 25 MG capsule TAKE 1 CAPSULE (25 MG) BY MOUTH 2 TIMES DAILY. 60 capsule 1 05/02/20 25 Active traMADol ER (Ultram-ER) 100 MG 24 hr tabletIndicatio ns:Chronic bilateral low back pain without sciatica Take 1 tablet (100 mg) by mouth Once per day. Do not crush, chew, or split. Daily AM 30 tablet 05/04/20 25 025 Active Semaglutide-Ko ght Management (Wegovy) 0.25 MG/0.5ML solution auto-injectorIn dications:Class 3 severe obesity due to excess calories with serious comorbidity and body mass index (BMI) of 45.0 to 49.9 in adult Inject 0.5 mL (0.25 mg) under the skin 1 (one) time per week. 2 mL 3 05/11/20 25 Active traMADol (Ultram) 50 MG tabletIndicatio ns:Chronic bilateral low back pain without sciatica TAKE 1 TABLET (50 MG) BY MOUTH 2 TIMES DAILY. TAKE ONE TABLET AT NOON AND ONE TABLET AT NIGHT DAILY 60 tablet 05/23/20 25 025 Active pregabalin (Lyrica) 25 MG capsule Take 1 capsule (25 mg) by mouth 2 times daily. 60 capsule 1 03/01/20 25 025 Discontinued traMADol (Ultram) 50 MG tabletIndicatio ns:Chronic bilateral low back pain without sciatica TAKE 1 TABLET (50 MG) BY MOUTH 2 TIMES DAILY. TAKE ONE TABLET AT NOON AND ONE TABLET AT NIGHT DAILY 60 tablet 04/15/20 25 025 Discontinued(Re order (will not trigger notification to Pharmacy)) traMADol ER (Ultram-ER) 100 MG 24 hr tabletIndicatio ns:Chronic bilateral low back pain without sciatica Take 1 tablet (100 mg) by mouth Once per day. Do not crush, chew, or split. Daily AM Do not start before May 13, 2025. 30 tablet 05/13/20 25 025 Discontinued(Re order (will not trigger notification to Pharmacy)) traMADol (Ultram) 50 MG tabletIndicatio ns:Chronic bilateral low back pain without sciatica Take 1 tablet (50 mg) by mouth 2 times daily for 10 days. Take one tablet at noon and one tablet at night daily 20 tablet 05/02/20 25 025 Active Problems Problem Noted Date Diagnosed Date Class 3 severe obesity due t o excess calories with serious comorbidity and body mass index (BMI) of 45.0 to 49.9 in adult 05/11/2025 Assessment & Plan (05/11/2025 12:43 PM EDT): Reviewed indications for pharmacotherapy with patient, which is treatment for patient w/ obesity or a patient with a BMI > 27 w/ CV risk factors who have failed lifestyle modifications alone. These are always prescribed in combination with ongoing lifestyle modification; and will be titrated up from the lowest dose. Will start patient on Wegovy, given know efficacy and proven benefits to reduce the risk of cardiovascular events in patients who are overweight or obese and have cardiovascular disease, following of the [facility] trial results. Reviewed mechanism of action with patient. Discussed side effects with patient: nausea, vomiting, diarrhea & risk of pancreatitis. No contraindications identified: , hx of pancreatitis, hx of medullary thyroid cancer or MEN 2. Discussed calorie deficit, recommended reduction of 20-30% of maintenance calories; glass inserter referral offered. Recommended to decrease soda and sugary beverage consumption. Recommended at least 20 g per meal of protein to assist with satiety. Recommended at least 150 min/week of moderate intensity exercise. Encounter for medical examination to establish c are 03/01/2025 Assessment & Plan (03/01/2025 3:05 PM EDT): Last pcp visit 1 year ER visit on the past year:- Hospitalization:- Pmhx: Low back pain (sacral illeitis) Pshx: right knee arthroscopy 2024, left knee arthroscopy 2023 All:- Meds: tramadol 50mg tid, Anemia 03/01/2025 Assessment & Plan (03/01/2025 3:23 PM EDT): Will order labs for further evaluation Chronic bilateral low back pain without sciatica 03/01/2025 Assessment & Plan (05/11/2025 12:43 PM EDT): Followed by yenny, on tramadol for pain management, she will undergo steroid injection, follow up as needed Assessment & Plan (03/01/2025 3:24 PM EDT): Followed at [facility], she is receiving cortisone injections. Encounters Date Type Department Care Team Description 05/20/2025 Refill [facility] [address] [place] [address] Jamil Garza MD Chronic bilateral low back pain without sciatica 05/11/2025 9:00 AM EDT Office Visit [facility] [address] [place] [address] Jamil Garza MD Class 3 severe obesity due to excess calories with serious comorbidity and body mass index (BMI) of 45.0 to 49.9 in adult (Primary Dx); Encounter for screening mammogram for malignant neoplasm of breast; Chronic bilateral low back pain without sciatica 05/11/2025 Travel 05/03/2025 Patient Outreach [facility] [address] [place] [address] Jamil Garza MD Pre-visit Planning (SDOH screening negative and Tobacco screening negative) 05/03/2025 Refill [facility] [address] [place] [address] Brisa Teague RN Chronic bilateral low back pain without sciatica 05/02/2025 Orders Only [facility] [address] [place] [address] Jamil Garza MD Chronic bilateral low back pain without sciatica 05/01/2025 Refill [facility] [address] [place] [address] Jamil Garza MD 04/29/2025 Refill [facility] [address] [place] [address] Jamil Garza MD Chronic bilateral low back pain without sciatica 04/15/2025 Telephone [facility] [address] [place] [address] Jamil Garza MD Med Refill 04/15/2025 Refill [facility] [address] [place] [address] Jamil Garza MD Chronic bilateral low back pain without sciatica 03/31/2025 Refill [facility] [address] [place] [address] Jamil Garza MD Chronic bilateral low back pain without sciatica 03/14/2025 Orders Only [facility] [address] [place] [address] Jamil Garza MD 03/11/2025 Orders Only [facility] [address] [place] [address] Jamil Garza MD Iron deficiency (Primary Dx) 03/11/2025 Orders Only [facility] [address] [place] [address] Jamil Garza MD 03/11/2025 Telephone [facility] [address] [place] [address] Jamil Garza MD Results 03/02/2025 Orders Only [facility] [address] [place] [address] Jamil Garza MD Chronic bilateral low back pain without sciatica 03/01/2025 2:45 PM EDT Telemedicine [facility] [address] [place] [address] Jamil Garza MD Encounter for medical examination to establish care (Primary Dx); Chronic bilateral low back pain without sciatica; Anemia, unspecified type 03/01/2025 Travel 02/28/2025 Travel from Last 3 Months Family History Medical History Relation Name Comments Diabetes Father Hyperlipidemia Father Colon cancer Father's Sister Endometrial cancer Mother Breast cancer Mother's Sister Relation Name Status Comments Father Father's Sister Mother Mother's Sister Social History Tobacco Use Types Packs/Day Years Used Date Smoking Tobacco: Never Smokeless Tobacco: Never Tobacco Cessation:Counseling Given: Not Answered Alcohol Use Standard Drinks/Week Comments Yes 0 (1 standard drink = 0.6 oz pur e alcohol) socially 2-3 times a year Depression Answer Date Recorded Patient Health Questionnaire-9 Score 0 03/01/2025 Patient Health Questionnaire-9 Score 0 03/01/2025 Last PHQ-9: Questionnaire Data Not on file 0 03/01/2025 Housing Stability Answer Date Recorded What is your housing situation today? I have alex schofield 05/03/[address] you li ve. Do you have problems with any of the following? None of the above 05/03/2025 Food Insecurity Answer Date Recorded Within the past 12 months, y ou worried that your food would run out before you got money to buy more: Never True 05/03/2025 Within the past 12 months,th e food you bought just didn't last and you didn't have enough money to get more: Never True Transportation Answer Date Recorded In the past 12 months, has l ack of transportation kept you from medical appts, meetings, work or from getting things needed for daily living? No 05/03/2025 Utilities Answer Date Recorded In the past 12 months, has t he electric, gas, oil or water company threatened to shut off services in your home? No 05/03/2025 Depression Answer Date Recorded Patient Health Questionnaire-2 Score 0 03/01/2025 Internet Access Answer Date Recorded Internet Access Q1 Yes 05/03/2025 Internet Access Q2 Not on file 05/03/2025 Comments Unknown Sex and Gender Information Value Date Recorded Sex Assigned at Female 02/01/2025 9:52 AM EDT Legal Sex Female 9:51 AM EDT Gender Identity Female 02/01/2025 9:52 AM EDT Sexual Orientation Straight 02/01/2025 9: 52 AM EDT Last Filed Vital Signs Vital Sign Reading Time Taken Comments Blood Pressure 131/82 05/11/2025 9:14 AM EDT Pulse 76 05/11/2025 9:14 AM EDT Temperature 36.6 C (97.9 F) 05/11/2025 9:14 AM EDT Respiratory Rate 20 05/11/2025 9:14 AM EDT Oxygen Saturation - - Inhaled Oxygen Concentration - - Weight 138 kg (304 lb) 05/11/2025 9:14 AM EDT Height 172.7 cm (5' 8 ) 05/11/2025 9:14 AM EDT Body Mass Index 46.22 05/11/2025 9:14 AM EDT Plan of Treatment Upcoming Encounters Date Type Department Care Team (Late st Contact Info) Description 06/02/2025 9:30 AM EDT Telemedicine [facility] [address] [place] [address] Jamil Garza MD [address] [place] [address] Health Maintenance Due Date Last Done Comments Lipid Panel 1985 Alcohol/Substance Use Screening 1997 Family Planning (PISQ) 2000 Pap Smear 2006 Cervical Cancer Screening 2015 HPV/Cotest 2015 COVID-19 Vaccine ( season) 2024 08/24/2021, 12/07/2020, 10/27/2020 HPV Vaccines (3 - 3-dose series) 08/25/2024 06/02/2024, 08/15/2021 Influenza Vaccine (#1) 2025 , 10/09/2022, 07/16/2019, Additional history exists Disability Screening 02/28/2026 02/28/2025 Depression Screening 03/01/2026 03/01/2025, 03/01/20 25 Tobacco Screening 03/01/2026 03/01/2025 SDOH Screening 05/03/2026 05/03/2025 DTaP/Tdap/Td Vaccines (2 - Td or Tdap) 05/30/2027 05/30/2017 Zoster Vaccines (1 of 2) 2035 RSV Patients and Patients Aged 60 years or older (1 - 1-dose 75+ series) 2060 Hepatitis B Vaccines Completed 07/20/2024, 05/26/20 24 HIV Screening Completed 03/07/2025 Hepatitis C Screening Completed 03/07/2025 HIB Vaccines Aged Out No longer eligi [...] patient's age to complete this topic Meningococcal Vaccine Aged Out No mishel lauren eligible based on patient's age to complete this topic Pneumococcal Vaccine: Pediatrics (0 to 5 Years) and At-Risk Patients (6 to 49) Years Aged Out No longer eligible based on patient's age to complete this topic RSV under 20 months Aged Out No longe r eligible based on patient's age to complete this topic Rotavirus Vaccines Aged Out No longer eligible based on patient's age to complete this topic Procedures Procedure Name Priority Date/Time Associated Diagnosis Comments HEPATITIS C AB W/REFL TO HCV RNA, QN, PCR Routine 03/07/2025 11:19 AM EDT Chronic bilateral low back pain without sciatica HIV 1/2 ANTIGEN/ANTIBODY, FOURTH GENERATION W/RFL Routine 03/07/2025 11:19 AM EDT Chronic bilateral low back pain without sciatica VITAMIN B12/FOLATE, SERUM PANEL Routine 03/07/2025 11:19 AM EDT Chronic bilateral low back pain without sciatica IRON AND TOTAL IRON BINDING CAPACITY Routine 03/07/2025 11:19 AM EDT Chronic bilateral low back pain without sciatica CBC WITH AUTO DIFFERENTIAL Routine 03/07/2025 11:19 AM EDT Chronic bilateral low back pain without sciatica from Last 3 Months Results * Vitamin B12 (Cobalamin) and Folate Panel, Serum (03/07/2025 11:19 AM EDT) Vitamin B12 398 200 - 900 pg/mL [facility] Comment:NORMAL 200-900 PG/ML INDETERMINATE 160-199 PG/ML DEFICIENT < 160 PG/ML Folate 7.9 > or = 4.0 ng/mL [facility] Comment:Reference Values:> o r = 4.0 ng/mL< 4.0 ng/mL suggests folate deficiency Methotrexate, aminopterin and folinic acid(leucovorin) are chemotherapeutic agents whose molecularstructures are similar to folate; therefore, the Architectfolate assay cannot be used for patients using these drugs. Blood Venous blood specimen / Unknown 03/07/2025 11:19 AM EDT 03/07/2025 2:15 PM EDT us Jamil Valencia MD LAB BLOOD ORDERABL ES Final Result [facility] [address] [place] [phone] * (ABNORMAL) CBC auto differential (03/07/2025 11:19 AM EDT) Pathologist [facility] White Blood Count 6.5 4.8 - 10.8 X10*3/uL [facility] Red Blood Count 4.99 4.20 - 5.50 X10*6/uL [facility] Hemoglobin 10.5(L) 12.0 - 16.0 g/dl [facility] Hematocrit 34.7(L) 37.0 - 47.0 % [facility] Mean Corpuscular Volume 69.5(L) 80.0 - 98.0 fL [facility] Mean Corpuscular Hemoglobin 21.0(L) 27.0 - 33.0 pg [facility] Mean Corpuscular HGB Conc 30.3(L) 31.0 - 35.0 g/dl [facility] Red Cell Distribution Width 18.5(H) 11.0 - 16.0 % [facility] Platelet Count 113(L) 160 - 400 X10*3/uL [facility] Mean Platelet Volume TNP 9.4 - 12.3 fL [facility] Neutrophils Percent Auto 65.4 45 - 73 % [facility] Imm Gran Pct Auto 0.3 0.0 - 0.4 % [facility] Lymphocytes Percent Auto 27.1 20 - 40 % [facility] Monocytes Percent Auto 5.5 2 - 11 % [facility] Eosinophils Percent Auto 1.2 0 - 4 % [facility] Basophils Percent Auto 0.5 0 - 2 % [facility] NRBC Pct Auto 0.0 0.0 - 0.2 /100WBC [facility] Neutrophils Absolute Auto 4.3 2.0 - 8.3 x10*3/uL [facility] Imm Gran Abs Auto 0.02 0.00 - 0.03 X10*3/uL [facility] Lymphocytes Absolute Auto 1.8 1.2 - 4.9 X10*3/uL [facility] Monocytes Absolute Auto 0.4 0.1 - 1.2 X10*3/uL [facility] Eosinophils Absolute Auto 0.1 0.0 - 0.4 X10*3/uL [facility] Basophils Absolute Auto 0.0 0.0 - 0.2 X10*3/uL [facility] NRBC Abs Auto 0.000 0.0 - 0.012 X10*3/uL [facility] Blood Venous blood specimen / Unknown 03/07/2025 11:19 AM EDT 03/07/2025 2:15 PM EDT us Jamil Valencia MD LAB BLOOD ORDERABL ES Final Result [facility] [address] [place] [phone] * Hepatitis C Antibody with Reflex to HCV, RNA, Quantitative, Real-Time PCR (03/07/2025 11:19 AM EDT) [facility] Hepatitis C Antibody Nonreactive Nonreactive [facility] Comment:Antibodies to HCV no t detected; does not exclude early acuteHCV infection. Blood Venous blood specimen / Unknown 03/07/2025 11:19 AM EDT 03/07/2025 2:15 PM EDT Jamil Valencia MD LAB BLOOD ORDERABL ES Final Result Performing Organization Address [facility]/ZIP Co de Phone Number [facility] [address] [place] [phone] * (ABNORMAL) Iron And Total Iron Binding Capacity (03/07/2025 11:19 AM EDT) [facility] Iron 22(L) 30 - 160 mcg/dL [facility] Total Iron Binding Capacity 369 228 - 428 mcg/dL [facility] Percent Iron Saturation 6(L) 15 - 50 % [facility] Unsaturated Iron Binding 347 ug/dL [facility] Blood Venous blood specimen / Unknown 03/07/2025 11:19 AM EDT 03/07/2025 2:15 PM EDT Jamil Valencia MD LAB BLOOD ORDERABL ES Final Result [facility] [address] [place] [phone] * HIV-1/2 Antigen and Antibodies, Fourth Generation, with Reflexes (03/07/2025 11:19 AM EDT) [facility] HIV AB/AG Nonreactive Nonreactive [facility] Comment:HIV-1 p24 Ag and/or HIV-1/HIV-2 Ab not detected.A test result that is nonreactive does not exclude thepossibility of exposure to or infection with HIV-1 and/orHIV-2. Nonreactive results in this assay for individualswith prior exposure to HIV-1 and/or HIV-2 may be due toantigen and antibody levels that are below the limit ofdetection of this assay.The [employer] HIV Ag/Ab Combo assay result andsupplemental assay results should be interpreted inconjunction with the patient's clinical presentation,history and other laboratory results. If the results areinconsistent with clinical evidence, additional testing issuggested to confirm the result. Blood Venous blood specimen / Unknown 03/07/2025 11:19 AM EDT 03/07/2025 2:15 PM EDT Jamil Valencia MD LAB BLOOD ORDERABL ES Final Result [facility] [address] [place] [phone] from Last 3 Months Insurance [employer] PPO Care Teams Gig Tender Relationship Specialty Start Date End Date Jamil Garza MD [address] [place] [phone] PCP - General Internal Medicine 03/01/25
[2025-05-30 14:15] LABS: MANUAL DIFF FLAG NO
[2025-05-30 14:31] LABS: Hemoglobin A1C 119.4664 umol/L; Total Hemoglobin (HGBA1C) 3168.3085 umol/L
[2025-05-30 14:34] LABS: Hematocrit 38.2 % (37.0-47.0); Hemoglobin 11.8 g/dl (12.0-16.0); Imm Gran Abs Auto 0.03 X10*3/uL (0.00-0.03); Imm Gran Pct Auto 0.5 % (0.0-0.4); Lymphocytes Absolute Auto 1.5 X10*3/uL (1.2-4.9); Mean Corpuscular HGB Conc 30.9 g/dl (31.0-35.0); Mean Corpuscular Hemoglobin 22.1 pg (27.0-33.0); Mean Corpuscular Volume 71.7 fL (80.0-98.0); NRBC Abs Auto 0.000 X10*3/uL (0.0-0.012); NRBC Pct Auto 0.0 /100WBC (0.0-0.2); Platelet Count 116 X10*3/uL (160-400); Red Blood Count 5.33 X10*6/uL (4.20-5.50); White Blood Count 6.3 X10*3/uL (4.8-10.8)
[2025-05-30 14:44] LABS: Alanine Aminotransferase 10 U/L (0-31); Albumin Level 3.9 g/dL (3.5-5.0); Alkaline Phosphatase 79 U/L (39-117); Anion Gap 10 (12-20); Aspartate Amino Transferase 24 U/L (5-31); Blood Urea Nitrogen 12 mg/dL (9-16); Calcium 8.8 mg/dL (8.4-10.2); Carbon Dioxide 26 mmol/L (22-29); Chloride 108 mmol/L (96-108); Cholesterol 148 mg/dL (<200); Estimated Glomerular Filt Rate > 60; HDL Cholesterol 51 mg/dL (>40); Iron 49 mcg/dL (30-160); Percent Iron Saturation 15 % (15-50); Potassium 4.3 mmol/L (3.3-5.1); Sodium 140 mmol/L (135-145); Total Iron Binding Capacity 326 mcg/dL (228-428); Total Protein 6.9 g/dL (6.5-8.0); Triglycerides 68 mg/dL (<150); Unsaturated Iron Binding 277 ug/dL
== END 2025-05-30 08:08 | disposition home or self-care (01) ==
LOC: HO.CHCLDS 08:07
PROVIDERS: Visit Provider Internal Medicine
DX: Z13.1 Encounter for screening for diabetes mellitus (principal); E66.813 Obesity, class 3; Z68.42 Body mass index [BMI] 45.0-49.9, adult; E61.1 Iron deficiency
CPT/HCPCS: 36415; 80053; 80061; 83036; 83540; 84443; 85025